=== PATIENT | male | born 1935 | race Caucasian/White ===

== ENCOUNTER 2016-05-05 14:44 | Inpatient (IN) | payer MEDICARE ==
[~2016-05-05] VITALS: Ht 182.9 cm; Wt 73.8 kg
[2016-05-05 14:53] VITALS: BP 170/89; PULSE 74; RESP 18; TEMP 97.6; O2SAT 98
--- NOTE | 2016-05-05 15:09 | PD ---
HPI Chief Complaint: Syncope/Near-Syncope Time Seen by Provider: 14:50 Travel History International Travel<30 days: No Contact w/Intl Traveler<30days: No Traveled to known affect area: No History of Present Illness HPI This patient was feeling lightheaded with some generalized weakness. It started this morning. Duration is 6 hours. It became progressive so he called paramedics. He felt like he was in a pass out but there was no LOC. Paramedics found him at home and a heart rate of 48 and a blood pressure of 80/ 50. They gave him 0.5 mg IV atropine and 500 cc normal saline IV bolus. He arrives with a heart rate of 77 and a blood pressure of 170 systolic. About the time he was arriving at the emergency room he started to have some low sternal chest discomfort. Describes it as an aching pressure. It is mild in severity. No radiation or diaphoresis or nausea. He has significant cardiac history. He had a KS in [place] 03/17/2016 and had a catheterization. According to the patient medical management was the recommendation. He has had bypass grafting. Symptoms severity was moderate. Alleviated with atropine and IV fluid PFSH Past Medical History Hx Anticoagulant Therapy: Yes Cardiovascular Problems: Yes Social History Alcohol Use: No Tobacco Use: No Substance Use: No Allergies-Medications (Allergen,Severity, Reaction): Coded Allergies: Penicillin (Verified Allergy, Unknown, hives, 05/05/16) Reported Meds & Prescriptions Reported Meds & Active Scripts Active Reported Immune Enhance (Nutritional Supplements) 1 Tab Tab 1 Tab PO DAILY Biotin 7,500 Mcg Tab 7,500 Mcg PO DAILY E-400-Clear (Vitamin E) 400 Unit Cap 1 Cap PO DAILY Vitamin D3 (Cholecalciferol) 2,000 Unit Chew 2,000 Units CHEW DAILY Vitamin C (Ascorbic Acid) 500 Mg Cap 500 Mg PO DAILY Vitamin B-6 (Pyridoxine HCl) 100 Mg Tab 100 Mg PO DAILY Vitamin B-12 (Cyanocobalamin) 500 Mcg Lozg 500 Mcg BUCCAL DAILY Vitamin A 10,000 Unit Tab 10,000 Units PO DAILY Zinc (Zinc Gluconate) 50 Mg Tab 1 Tab PO DAILY Nitrostat SL (Nitroglycerin) 0.4 Mg Subl 0.4 Mg SL DIRECTED PRN 1 tablet under the tongue as needed for chest pain. Repeat every 5 minutes for a total of 3 DOSES or call 911 if NO relief. Brimonidine Opth Drops (Brimonidine Tartrate) 0.15% Soln 1 Drop EACH EYE BID Ecotrin Low Strength (Aspirin) 81 Mg Tabdr 81 Mg PO DAILY Prednisone 1 Mg Tab 4 Mg PO DAILY Isosorbide Mononitrate ER (Isosorbide Mononitrate) 120 Mg Abram 120 Mg PO DAILY Lisinopril 20 Mg Tab 20 Mg PO DAILY Rosuvastatin (Rosuvastatin Calcium) 40 Mg Tab 40 Mg PO DAILY Carvedilol 6.25 Mg Tab 6.25 Mg PO BID Brilinta (Ticagrelor) 60 Mg Tab 60 Mg PO BID [renexa] 500 Mg PO BID Review of Systems General / Constitutional: No: Fever Eyes: No: Visual changes HENT: Positive: Lightheadedness, No: Headaches Cardiovascular: Positive: Chest Pain or Discomfort Respiratory: No: Shortness of Breath Gastrointestinal: No: Abdominal Pain Genitourinary: No: Dysuria Musculoskeletal: Positive: Weakness, No: Pain Skin: No Rash Neurologic: Positive: Weakness, Dizziness Psychiatric: No: Depression Endocrine: No: Polydipsia Hematologic/Lymphatic: No: Easy Bruising Physical Exam Narrative GENERAL: Well-nourished, well-developed patient in no apparent distress. SKIN: Warm and dry. HEAD: Atraumatic. Normocephalic. EYES: Pupils equal and round. No scleral icterus. No injection or drainage. ENT: No nasal bleeding or discharge. Mucous membranes pink and moist. NECK: Trachea midline. No JVD. CARDIOVASCULAR: Regular rate and rhythm. No murmur appreciated. RESPIRATORY: No accessory muscle use. Clear to auscultation. Breath sounds equal bilaterally. GASTROINTESTINAL: Abdomen soft, non-tender, nondistended. Hepatic and splenic margins not palpable. MUSCULOSKELETAL: No obvious deformities. No clubbing. No cyanosis. No edema. NEUROLOGICAL: Awake and alert. No obvious cranial nerve deficits. Motor grossly within normal limits. Normal speech. PSYCHIATRIC: Appropriate mood and affect; insight and judgment normal. Data Data Last Documented VS Vital Signs Date Time Temp Pulse Resp B/P Pulse Ox O2 Delivery O2 Flow Rate FiO2 05/05/16 15:09 Nasal Cannula 2 05/05/16 14:53 97.6 74 18 170/89 98 Orders Basic Metabolic Panel (Bmp) (05/05/16 15:01) Complete Blood Count With Diff (05/05/16 15:01) Ckmb (Isoenzyme) Profile (05/05/16 15:01) Troponin I (05/05/16 15:01) Act Partial Throm Time (Ptt) (05/05/16 15:01) Prothrombin Time / Inr (Pt) (05/05/16 15:01) Chest, Single Ap (05/05/16 15:01) Ecg Monitoring (05/05/16 15:01) Iv Access Insert/Monitor (05/05/16 15:01) Oximetry (05/05/16 15:01) Sodium Chloride 0.9% Flush (Ns Flush) (05/05/16 15:15) Aspirin (Aspirin) (05/05/16 15:30) Labs Laboratory Tests Test 05/05/16 14:40 White Blood Count 13.2 TH/MM3 Red Blood Count 4.03 MIL/MM3 Hemoglobin 11.9 GM/DL Hematocrit 36.9 % Mean Corpuscular Volume 91.5 FL Mean Corpuscular Hemoglobin 29.5 PG Mean Corpuscular Hemoglobin 32.2 % Concent Red Cell Distribution Width 13.7 % Platelet Count 197 TH/MM3 Mean Platelet Volume 8.6 FL Neutrophils (%) (Auto) 78.5 % Lymphocytes (%) (Auto) 11.0 % Monocytes (%) (Auto) 7.8 % Eosinophils (%) (Auto) 2.2 % Basophils (%) (Auto) 0.5 % Neutrophils # (Auto) 10.4 TH/MM3 Lymphocytes # (Auto) 1.4 TH/MM3 Monocytes # (Auto) 1.0 TH/MM3 Eosinophils # (Auto) 0.3 TH/MM3 Basophils # (Auto) 0.1 TH/MM3 CBC Comment DIFF FINAL Differential Comment Prothrombin Time 10.9 SEC Prothromb Time International 1.0 RATIO Ratio Activated Partial 21.7 SEC Thromboplast Time Sodium Level 137 MEQ/L Potassium Level 3.7 MEQ/L Chloride Level 102 MEQ/L Carbon Dioxide Level 26.5 MEQ/L Anion Gap 9 MEQ/L Blood Urea Nitrogen 28 MG/DL Creatinine 1.50 MG/DL Estimat Glomerular Filtration 45 ML/MIN Rate Random Glucose 128 MG/DL Calcium Level 7.5 MG/DL Total Creatine Kinase 45 U/L Troponin I 0.17 NG/ML MDM Medical Decision Making Medical Screen Exam Complete: Yes Emergency Medical Condition: Yes Medical Record Reviewed: Yes Differential Diagnosis Differential diagnosis includes KS, angina, pericarditis, pleurisy, GERD, anxiety, medication side effect, vasovagal episode, cardiac arrhythmia Narrative Course I have reviewed the patient's electronic medical record. Patient is never been here before. I reviewed his type handouts detailing medical history and medication list I reviewed the paramedics EKG IV placed I reviewed the EKG which shows sinus rhythm in the 70s. No acute ST elevation. There is some lateral lead depression and leads V1 and aVL and V5 and V6. Appears to be deep Q waves in one of the inferior leads. I reviewed the chest x-ray which is normal Extended cardiac monitoring shows sinus rhythm in the 70s CBC is normal Metabolic profile is normal CK is normal Troponin is 0.17, very minor nonspecific elevation Coagulation studies are normal I gave him an aspirin On recheck patient is pain-free and doing well with heart rate of 65 and blood pressure 170 systolic I reviewed the case in detail with ZACK Cao on behalf of the hospitalist service and he accepts admission He is going to review with cardiology Procedures EKG Prior to Arrival: Yes Diagnosis Primary Impression: Pre-syncope Additional Impression: Chest pain Qualified Code: R07.2 - Precordial pain Admitting Information Admitting Physician Requests: Admit Russell Hernandez MD May 05, 2016 15:09
[2016-05-05 15:15] LABS: AUTOMATED NEUTROPHIL # 10.4 TH/MM3 (1.8-7.7); BASOPHIL # 0.1 TH/MM3 (0-0.2); BASOPHIL % 0.5 % (0.0-2.0); EOSINOPHIL # 0.3 TH/MM3 (0-0.4); EOSINOPHIL % 2.2 % (0.0-4.0); HEMATOCRIT 36.9 % (39.0-51.0); LYMPHOCYTE # 1.4 TH/MM3 (1.0-4.8); MEAN CELL VOLUME 91.5 FL (80.0-100.0); MEAN CORPUSCULAR HEMOGLOBIN 29.5 PG (27.0-34.0); MEAN CORPUSCULAR HGB CONC 32.2 % (32.0-36.0); MONO % 7.8 % (0.0-8.0); NEUT % 78.5 % (16.0-70.0); PLATELET COUNT 197 TH/MM3 (150-450); RED BLOOD COUNT 4.03 MIL/MM3 (4.50-5.90); RED CELL DISTRIBUTION WIDTH 13.7 % (11.6-17.2); WHITE BLOOD COUNT 13.2 TH/MM3 (4.0-11.0)
[2016-05-05] MEDS ORDERED: SODIUM CHLORIDE 0.9% FLUSH 5 ML FLUSH IVF PRN (15:15)
[2016-05-05 15:16] LABS: HEMO FLAGS DIFF FINAL
--- NOTE | 2016-05-05 15:18 | RADHPO ---
EXAM DATE/TIME: 05/05/2016 15:13 [facility] COMPARISON: No previous studies available for comparison. INDICATIONS : Dizziness and faint feeling all day. MEDICAL HISTORY : Chronic obstructive pulmonary disease. SURGICAL HISTORY : CABG. ENCOUNTER: Initial ACUITY: 1 day PAIN SCORE: 2/10 LOCATION: Bilateral chest FINDINGS: A single view of the chest demonstrates the lungs to be symmetrically aerated without evidence of mas s, infiltrate or effusion. The cardiomediastinal contours are unremarkable. There is evidence of pre vious cardiothoracic surgery. Osseous structures are intact. CONCLUSION: No acute disease. Momo Hu MD on May 05, 2016 at 15:17 Board Certified Radiologist. This report was verified electronically.
[2016-05-05] MEDS ORDERED: BRIM0.155 EACH EYE (15:23)
[2016-05-05] MEDS ORDERED: renexa PO (15:23)
[2016-05-05] MEDS ORDERED: LISI-515 PO (15:23)
[2016-05-05] MEDS ORDERED: CHEL50TA PO (15:23)
[2016-05-05] MEDS ORDERED: [UNRECOGNIZED DRUG - CODE] PO (15:23)
[2016-05-05] MEDS ORDERED: PRED1 PO (15:23)
[2016-05-05] MEDS ORDERED: ASPI-147 PO (15:23)
[2016-05-05] MEDS ORDERED: CARV6.252 PO (15:23)
[2016-05-05] MEDS ORDERED: TICA1TAB PO (15:23)
[2016-05-05] MEDS ORDERED: ISOS120T PO (15:23)
[2016-05-05] MEDS ORDERED: NITR0.4S SL (15:23)
[2016-05-05] MEDS ORDERED: ROSU1TAB10 PO (15:23)
[2016-05-05] MEDS ORDERED: [UNRECOGNIZED DRUG - CODE] PO (15:24)
[2016-05-05] MEDS ORDERED: ASCO500C PO (15:24)
[2016-05-05] MEDS ORDERED: PYRI100T PO (15:24)
[2016-05-05] MEDS ORDERED: BIOT7500 PO (15:24)
[2016-05-05] MEDS ORDERED: CHOL1CHW5 CHEW (15:24)
[2016-05-05] MEDS ORDERED: VITA500L BUCCAL (15:24)
[2016-05-05] MEDS ORDERED: [UNRECOGNIZED DRUG - OTHER] PO (15:24)
[2016-05-05] MEDS ORDERED: ASPIRIN 325 MG TAB PO ONE (15:30)
[2016-05-05 15:39] LABS: POTASSIUM 3.7 MEQ/L (3.5-5.1)
[2016-05-05 15:44] LABS: BICARBONATE 26.5 MEQ/L (21.0-32.0)
[2016-05-05 15:46] LABS: APTT (PATIENT) 21.7 SEC (24.3-30.1); PROTHROMBIN TIME - PATIENT 10.9 SEC (9.8-11.6)
[2016-05-05 15:50] VITALS: BP 164/83; PULSE 83; RESP 16; O2SAT 98
[2016-05-05] MEDS ORDERED: NITROGLYCERIN 0.4 MG SL 25 TABS/BTL SL PRN (16:15)
[2016-05-05] MEDS ORDERED: SODIUM CHLORIDE 0.9% FLUSH 5 ML FLUSH FLUSH PRN (16:15)
[2016-05-05] MEDS ORDERED: ONDANSETRON HCL 4 MG/2 ML VIAL IVP PRN (16:15)
[2016-05-05] MEDS ORDERED: TEMAZEPAM 15 MG CAP PO PRN (16:15)
[2016-05-05] MEDS ORDERED: NALOXONE HCL 0.4 MG/ML AMP IV PRN (16:15)
[2016-05-05] MEDS ORDERED: ACETAMINOPHEN 325 MG TAB PO PRN (16:15)
--- NOTE | 2016-05-05 17:40 | HHI.HP ---
[facility] Service [place] Hospitalists Primary Care Physician No Primary Care Physician Admission Diagnosis presyncope, chest pain, CAD Diagnoses: (1) Chest pain Diagnosis: Principal (2) Pre-syncope Diagnosis: Principal (3) Hypotension Diagnosis: Principal (4) Coronary artery disease Diagnosis: Secondary (5) Hyperlipidemia Diagnosis: Secondary Chief Complaint: Lightheaded, dizzy, low blood pressure Travel History International Travel<30 Days: No Contact w/Intl Traveler <30 Da: No Traveled to Known Affected Are: No History of Present Illness 80 year-old male with known history of hypertension, hyperlipidemia, coronary artery disease status post bypass surgery, history myocardial infarction who presented to hospital because of low blood pressure, lightheadedness, dizziness. Patient states that his normal state of health until today. Patient states that he took his medication this morning as usual. He took a shower at approximately 11 AM. When his condition and the shower he felt a little lightheaded, dizzy. He checked his blood pressure and systolic blood pressure was 110., That is low for him. He did have a mild cut on his back; friend who came over to check on him. They put a Band-Aid on his back. They rechecked his blood pressure throughout his friend stayed. In blood pressure went down to systolic blood pressure 80s. At that time, they called the ambulance to came to his residence. It was indicated that his blood pressure was 80/50. Heart rate was 48. Patient was given 0.5 mg IV atropine and 500 cc IV fluid bolus. His blood pressure did improve to systolic blood pressure 170 and heart rate 77. After the patient received the atropine he started developing a achiness in the middle part of his chest without any radiation to his neck, back, shoulder, arm. Denies any nausea, vomiting, diaphoresis, shortness of breath, dyspnea. Patient states by the time he mated to the hospital that was approximately 15 minutes, the chest pain had resolved. Patient had workup done in the emergency department and found to have equivocal troponin elevation. Because of patient's near-syncope, blood pressure issues, elevated troponin, chest pain is recommended by the ER physician that the patient be admitted for further evaluation and management. Patient states that he does not have a local ground defence officer. He states that his ground defence officer is located in [place]. He recently visited his daughter in [place] in which he had an episode of chest pain in March. He did undergo cardiac catheterization at that time. He was told that there is no intervention that could be done at that time. The patient returned to another hospital approximately one week later and after that ground defence officer reviewed the patient's recent cardiac catheterization, he agreed that there was no intervention that can be done. Review of Systems Constitutional: COMPLAINS OF: Dizziness, DENIES: Diaphoretic episodes, Fatigue , Fever, Weight gain, Weight loss, Chills, Change in appetite, Night Sweats Eyes: DENIES: Blurred vision, Diplopia, Eye inflammation, Eye pain, Vision loss , Double Vision Ears, nose, mouth, throat: DENIES: Vertigo, Nasal discharge, Throat pain, Ear Pain, Running Nose Respiratory: DENIES: Apneas, Cough, Snoring, Wheezing, Hemoptysis, Sputum production, Shortness of breath Cardiovascular: COMPLAINS OF: Chest pain, DENIES: Palpitations, Syncope, Dyspnea on Exertion, Lower Extremity Edema, Orthopnea Gastrointestinal: DENIES: Abdominal pain, Black stools, Bloody stools, Constipation, Diarrhea, Nausea, Vomiting, Difficulty Swallowing, Anorexia Neurologic: DENIES: Abnormal gait, Headache, Localized weakness, Paresthesias, Speech Problems, Tremor, Poor Balance Past Family Social History Past Medical History Hypertension Hyperlipidemia Coronary artery disease History myocardial infarction Past Surgical History Cataract surgery Cardiac catheterization Cholecystectomy Coronary bypass surgery 4 vessel Left knee replacement Lumbar spine arthroscopic surgery Reported Medications Reported Meds & Active Scripts Active Reported Biotin 7,500 Mcg Tab 7,500 Mcg PO DAILY E-400-Clear (Vitamin E) 400 Unit Cap 1 Cap PO DAILY Vitamin D3 (Cholecalciferol) 2,000 Unit Chew 2,000 Units CHEW DAILY Vitamin C (Ascorbic Acid) 500 Mg Cap 500 Mg PO DAILY Vitamin B-6 (Pyridoxine HCl) 100 Mg Tab 100 Mg PO DAILY Vitamin B-12 (Cyanocobalamin) 500 Mcg Lozg 500 Mcg BUCCAL DAILY Vitamin A 10,000 Unit Tab 10,000 Units PO DAILY Zinc (Zinc Gluconate) 50 Mg Tab 1 Tab PO DAILY Nitrostat SL (Nitroglycerin) 0.4 Mg Subl 0.4 Mg SL DIRECTED PRN 1 tablet under the tongue as needed for chest pain. Repeat every 5 minutes for a total of 3 DOSES or call 911 if NO relief. Brimonidine Opth Drops (Brimonidine Tartrate) 0.15% Soln 1 Drop EACH EYE BID Ecotrin Low Strength (Aspirin) 81 Mg Tabdr 81 Mg PO DAILY Prednisone 1 Mg Tab 4 Mg PO DAILY Isosorbide Mononitrate ER (Isosorbide Mononitrate) 120 Mg Abram 120 Mg PO DAILY Lisinopril 20 Mg Tab 20 Mg PO DAILY Rosuvastatin (Rosuvastatin Calcium) 40 Mg Tab 40 Mg PO DAILY Carvedilol 6.25 Mg Tab 6.25 Mg PO BID Brilinta (Ticagrelor) 60 Mg Tab 60 Mg PO BID [renexa] 500 Mg PO BID Immune Enhance (Nutritional Supplements) 1 Tab Tab 1 Tab PO DAILY Allergies: Coded Allergies: Penicillin (Verified Allergy, Unknown, hives, 05/05/16) Family History Reviewed and significant for heart disease. Social History Patient denies any tobacco, alcohol or illicit drugs Physical Exam Vital Signs Vital Signs Date Time Temp Pulse Resp B/P Pulse Ox O2 Delivery O2 Flow Rate FiO2 05/05/16 15:50 83 16 164/83 98 Room Air 2 05/05/16 15:09 Nasal Cannula 2 05/05/16 14:53 97.6 74 18 170/89 98 05/05/16 14:44 74 98 Nasal Cannula 4 Physical Exam GENERAL: Well-developed, well-nourished, in no acute distress. alert and orientated HEENT: Head is normocephalic without any lesions or masses noted. Facial features are symmetric. Eyes: Pupils equal round reactive to light. Extraocular muscles are intact. Conjunctivae were clear. Oropharyngeal: Pharynx without any erythema edema. Tongue is midline without deviation. Buccal mucosa is moist without any masses or lesions NECK: Supple without any masses. Trachea midline no deviation. No JVD, no bruits are appreciated CARDIAC: Regular rhythm, regular rate. S1/S2 are heard. No murmurs gallops or rubs. LUNGS: Clear to auscultation bilaterally. No wheeze, rhonchi or rales. No use of accessory muscles on inspiration or expiration. ABDOMEN: Soft, nontender. Nondistended. Bowel sounds heard in all 4 quadrants. No organomegaly or masses. Negative rebound, negative guarding EXTREMITIES: No edema, pulses are equal bilaterally. No cyanosis or clubbing NEUROLOGY: Mood and affect appear appropriate. Cranial nerves II through XII grossly intact. Muscle strength 5/5 in upper and lower extremities bilaterally. Deep tendon reflexes are 2+ in upper and lower extremities bilaterally. Laboratory Laboratory Tests Test 05/05/16 14:40 White Blood Count 13.2 Red Blood Count 4.03 Hemoglobin 11.9 Hematocrit 36.9 Mean Corpuscular Volume 91.5 Mean Corpuscular Hemoglobin 29.5 Mean Corpuscular Hemoglobin 32.2 Concent Red Cell Distribution Width 13.7 Platelet Count 197 Mean Platelet Volume 8.6 Neutrophils (%) (Auto) 78.5 Lymphocytes (%) (Auto) 11.0 Monocytes (%) (Auto) 7.8 Eosinophils (%) (Auto) 2.2 Basophils (%) (Auto) 0.5 Neutrophils # (Auto) 10.4 Lymphocytes # (Auto) 1.4 Monocytes # (Auto) 1.0 Eosinophils # (Auto) 0.3 Basophils # (Auto) 0.1 CBC Comment DIFF FINAL Differential Comment Prothrombin Time 10.9 Prothromb Time International 1.0 Ratio Activated Partial 21.7 Thromboplast Time Sodium Level 137 Potassium Level 3.7 Chloride Level 102 Carbon Dioxide Level 26.5 Anion Gap 9 Blood Urea Nitrogen 28 Creatinine 1.50 Estimat Glomerular Filtration 45 Rate Random Glucose 128 Calcium Level 7.5 Total Creatine Kinase 45 Troponin I 0.17 Result Diagram: 05/05/16 1440 05/05/16 1440 Imaging Last Impressions Chest X-Ray 05/05/16 1501 Signed Impressions: Service Date/Time: Thursday, May 05, 2016 15:13 - CONCLUSION: No acute disease. Momo Hu MD Assessment and Plan Assessment and Plan Chest pain, possible unstable angina with equivocal troponin We will continue to trend cardiac enzymes Continue serial EKGs Patient with cardioprotection to include aspirin, beta amadou, KOLE inhibitor, statin, imdur Consult ground defence officer for further recommendations Lightheadedness,? Presyncope with low blood pressure, bradycardia Patient has had medications adjusted by outpatient ground defence officer recently, Could be related to patient's medication change Continue monitor blood pressure and heart rate Cardiac telemetry Check orthostatic vitals Chest TSH Hypertension, hyperlipidemia, coronary artery disease Continue home medications DVT prevention Sequential compression devices Physician Certification 2 Midnight Certification Type: Admission for Inpatient Services Order for Inpatient Services The services are ordered in accordance with Medicare regulations or non- Medicare payer requirements, as applicable. In the case of services not specified as inpatient-only, they are appropriately provided as inpatient services in accordance with the 2-midnight benchmark. Estimated LOS (days): 2 days is the estimated time the patient will need to remain in the hospital, assuming treatment plan goals are met and no additional complications. Post-Hospital Plan: Not yet determined Problem Qualifiers (1) Chest pain: Qualified Code: R07.2 - Precordial pain (2) Hypotension: Qualified Code: I95.9 - Hypotension, unspecified hypotension type (3) Coronary artery disease: Qualified Code: I25.10 - Coronary artery disease, angina presence unspecified, unspecified vessel or lesion type, unspecified whether [place] or transplanted heart (4) Hyperlipidemia: Qualified Code: E78.5 - Hyperlipidemia, unspecified hyperlipidemia type Russell Cao May 05, 2016 17:40 Merlyn Jackson MD May 05, 2016 17:43
[2016-05-05] MEDS: NS + KCL 20 MEQ INJ 1,000 ML IV SCH (17:46)
[2016-05-05 19:51] VITALS: PULSE 61
[2016-05-05 20:00] VITALS: BP_SYST 168; BP_SYST 175; BP_DIAS 88; BP_DIAS 99; PULSE 61; RESP 18; TEMP 97.3; O2SAT 99
[2016-05-05] MEDS: SODIUM CHLORIDE 0.9% FLUSH 5 ML FLUSH FLUSH SCH (21:00)
[2016-05-05] MEDS ORDERED: CARVEDILOL 6.25 MG TAB PO SCH (21:00)
[2016-05-05] MEDS: TICAGRELOR 60 MG TAB PO SCH (21:27)
[2016-05-05] MEDS: BRIMONIDINE TARTRATE 0.15% OPHT SOLN 5 ML BTL EACH EYE SCH (21:27)
[2016-05-05] MEDS: RANOLAZINE 500 MG EXTENDED RELEASE TAB PO SCH (21:27)
[2016-05-05] MEDS ORDERED: CARVEDILOL 12.5 MG TAB PO ONE (22:00)
[2016-05-05] MEDS: ATORVASTATIN 40 MG TAB PO SCH (22:11)
[2016-05-05] MEDS ORDERED: CARV12.52 PO (22:14)
[2016-05-06] VITALS (9 sets, daily range): BP systolic 118–200; BP diastolic 60–108; PULSE 56–75; RESP 17–20; TEMP 95.7–97.3; O2SAT 96–98
[2016-05-06] MEDS: NS + KCL 20 MEQ INJ 1,000 ML IV SCH (05:01)
[2016-05-06 06:39] LABS: CHLORIDE 106 MEQ/L (98-107); POTASSIUM 4.4 MEQ/L (3.5-5.1); SODIUM (NA) 141 MEQ/L (136-145)
[2016-05-06 06:44] LABS: ANION GAP 8 MEQ/L (5-15); BICARBONATE 27.2 MEQ/L (21.0-32.0); BLOOD UREA NITROGEN 25 MG/DL (7-18)
[2016-05-06 06:47] LABS: ALT (GPT) 22 U/L (12-78); AST (GOT) 15 U/L (15-37); GLOMERULAR FILTRATION RATE 53 ML/MIN (>89)
[2016-05-06 06:49] LABS: TOTAL BILIRUBIN ADULT 0.8 MG/DL (0.2-1.0)
[2016-05-06 06:50] LABS: ALKALINE PHOSPHATASE 52 U/L (45-117)
[2016-05-06] MEDS ORDERED: ISOSORBIDE MONONITRATE 60 MG TAB PO SCH (07:00)
--- NOTE | 2016-05-06 08:32 | MB ---
cc: AMERICO ANTHONY MD DATE OF CONSULTATION 05/06/2016 REASON FOR CONSULTATION Chest pain and elevated troponin. HISTORY OF PRESENT ILLNESS Mr. Main is an 80-year-old man who has a history of CABG approximately 10 years ago and prior vasovagal episodes. He reports his usual net c developer is in [place]. In March he was visiting his daughter over in [place] when he had what he described as a hypertensive crisis and chest pain. This led to cardiac catheterization. He was deemed to have non-revascularizable disease, and was subsequently discharged home. Approximately a week later, he had another episode and ended up at the [facility]. He had a second opinion on his films and again was told medical management. Since that time he was doing well until yesterday when, after coming out of the shower, he began to feel a bit dizzy. He said his initial blood pressure was about 110. He had some nausea and had a glass of water. Recheck on the blood pressure showed a systolic in the 80s and normal heart rate. EMS was apparently called and he received Atropine and IV fluid bolus with subsequent increase in his heart rate to 77 and a blood pressure of 170. The patient reports he has had multiple near-syncopal episodes over the years but has never had any syncope. In fact, he states that he was told that he has vasovagal in the past. He is currently asymptomatic but does note that he has had intermittent episodes of chest pain. PAST MEDICAL/SURGICAL HISTORY 1. Myocardial infarction. 2. CABG. 3. CAD. 4. Hypertension. 5. Hyperlipidemia, 6. Vasovagal episodes. 7. Cataract surgery. 8. Left knee replacement. 9. Spinal arthroscopy. OUTPATIENT MEDICATIONS 1. Vitamins. 2. Nitroglycerin p.r.n. 3. Aspirin. 4. Prednisone. 5. Isosorbide. 6. Lisinopril. 7. Rosuvastatin. 8. Carvedilol. 9. Brilinta. 10. Ranexa. ALLERGIES PENICILLIN. FAMILY HISTORY Positive for CAD. SOCIAL HISTORY The patient does not drink or smoke. REVIEW OF SYSTEMS Except what is mentioned in the HPI, all 12 systems are negative. PHYSICAL EXAMINATION VITAL SIGNS: Currently are 62, 18, 173/87. IN GENERAL: He is a well-appearing elderly man who is in no apparent distress. NECK: Free from JVD. LUNGS: Bilaterally clear to auscultation. CARDIOVASCULAR EXAMINATION: He has a normal S1 and S2. I do not appreciate any murmurs, rubs, or gallops. ABDOMEN: Soft. EXTREMITIES: Free from edema. LAB VALUES Significant for an initial BUN of 28 with creatinine of 1.5 and subsequently 25 and 1.30. His troponins are 0.17/0.18/0.17. IMPRESSIONS Vasovagal episode - The patient does have a history of the same. This particular episode followed a shower and some nausea with subsequent bradycardia and hypotension. This was quickly treated and appears to have actually rebounded. As you know, these vasovagal episodes are treated conservatively with hydration. Thus, at this point I do not feel that any further workup is indicated. Stable angina - The patient has had prior CABG and recent catheterization. He was told medical management by two physicians. At this point we will obviously continue with medical management. His troponins are flat elevation and likely related to his underlying pathologies including the CAD, renal insufficiency and hypertension. Hypertension - I would continue the patient on his same regimen as he presented on as he was doing quite well until this vasovagal episode. Consideration may be given towards p.r.n. clonidine for his outpatient blood pressure spikes at home in order to minimize his hospitalizations and symptoms. I think it reasonable for him to be discharged today and follow up as an outpatient with his net c developer or myself. Sincerely, Americo Anthony M.D. FANNY/MASHA /8:08 AM /8:16 AM
[2016-05-06] MEDS ORDERED: ASPIRIN EC 81 MG TABEC PO SCH (09:00)
[2016-05-06] MEDS ORDERED: LISINOPRIL 20 MG TAB PO SCH (09:00)
[2016-05-06] MEDS ORDERED: ATORVASTATIN 40 MG TAB PO SCH (09:00)
[2016-05-06] MEDS ORDERED: CARVEDILOL 12.5 MG TAB PO SCH (09:00)
[2016-05-06] MEDS: SODIUM CHLORIDE 0.9% FLUSH 5 ML FLUSH FLUSH SCH (09:00)
[2016-05-06] MEDS: ATORVASTATIN 40 MG TAB PO SCH (09:00)
[2016-05-06 09:36] LABS: HDL CHOLESTEROL 52.1 MG/DL (40.0-60.0); LDL CHOLESTEROL 53 MG/DL (0-99)
[2016-05-06] MEDS: RANOLAZINE 500 MG EXTENDED RELEASE TAB PO SCH (10:01)
[2016-05-06] MEDS: BRIMONIDINE TARTRATE 0.15% OPHT SOLN 5 ML BTL EACH EYE SCH (10:33)
[2016-05-06] MEDS: TICAGRELOR 60 MG TAB PO SCH (10:34)
--- NOTE | 2016-05-06 12:49 | HHI.PR ---
Subjective Remarks Ambulated throughout hallway, no syncopal or presycnopal episodes. Objective Vitals Vital Signs Date Time Temp Pulse Resp B/P Pulse Ox O2 Delivery O2 Flow Rate FiO2 05/06/16 12:00 96.9 65 20 118/60 97 05/06/16 08:06 65 118/75 05/06/16 08:03 62 123/73 05/06/16 08:00 97.3 59 20 155/65 96 05/06/16 05:05 62 173/87 05/06/16 05:00 64 200/108 05/06/16 04:50 96.7 75 18 180/84 98 05/06/16 04:00 95.8 60 18 172/80 98 05/06/16 00:00 95.7 56 17 142/75 96 05/05/16 20:00 97.3 61 18 168/88 99 168/88 175/99 05/05/16 19:51 61 05/05/16 15:50 83 16 164/83 98 Room Air 2 05/05/16 15:09 Nasal Cannula 2 05/05/16 14:53 97.6 74 18 170/89 98 05/05/16 14:44 74 98 Nasal Cannula 4 I/O 05/05/16 05/05/16 05/05/16 05/06/16 05/06/16 05/06/16 07:00 15:00 23:00 07:00 15:00 23:00 Intake Total 782 ml 597 ml Output Total 500 ml 325 ml Balance 282 ml 272 ml Intake Oral 480 ml IV Total 302 ml 597 ml Output Urine Total 500 ml 325 ml # Voids 2 # Bowel Movements 0 1 Result Diagram: 05/05/16 1440 05/06/16 0540 Objective Remarks GENERAL: Well-nourished, well-developed elderly CM patient. SKIN: Warm and dry. HEAD: Normocephalic. EYES: No scleral icterus. No injection or drainage. NECK: Supple, trachea midline. No JVD or lymphadenopathy. CARDIOVASCULAR: Regular rate and rhythm without murmurs, gallops, or rubs. RESPIRATORY: Breath sounds equal bilaterally. No accessory muscle use. GASTROINTESTINAL: Abdomen soft, non-tender, nondistended. EXTREMITIES: No cyanosis, or edema. NEUROLOGICAL: Awake, alert, and oriented x 3. Non-focal. Cognitively sharp. A/P Problem List: (1) Chest pain ICD Code: R07.9 Status: Acute (2) Pre-syncope ICD Code: R55 Status: Acute (3) Hypotension ICD Code: I95.9 Status: Acute (4) Coronary artery disease ICD Code: I25.10 Status: Acute (5) Hyperlipidemia ICD Code: E78.5 Status: Acute Assessment and Plan -Vasovagal episode - resolved, ambulating well, no further symptoms. Appreciate cardiology input - cleared for DC home. Patient advised on care with position changes, staying hydrated. 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 Problem Qualifiers (1) Chest pain: Qualified Code: R07.2 - Precordial pain (2) Hypotension: Qualified Code: I95.9 - Hypotension, unspecified hypotension type (3) Coronary artery disease: Qualified Code: I25.10 - Coronary artery disease, angina presence unspecified, unspecified vessel or lesion type, unspecified whether [place] or transplanted heart (4) Hyperlipidemia: Qualified Code: E78.5 - Hyperlipidemia, unspecified hyperlipidemia type Shaina Briggs MD May 06, 2016 12:49
--- NOTE | 2016-05-06 15:42 | EKG ---
Date Performed: 05/05/2016 Time Performed: 14:44:42 PTAGE: 80 years EKG: Sinus rhythm Possible inferior infarct - age undetermined Possible left ventricular hypertrophy Ant/septal and la teral ST-T changes may be due to hypertrophy and/or ischemia Abnormal ECG NO PREVIOUS TRACING DOCTOR: Ca Pelayo Interpretating Date/Time 05/06/2016 15:40:10
== END 2016-05-06 13:11 | disposition home or self-care (01) | DRG 316 ==
LOC: PHED 14:44 → PHEDA 15:59 → PH3B 18:14
PROVIDERS: ADMIT Family Medicine; ATTEND Family Medicine
DX: I95.9 Hypotension, unspecified (principal); Z95.1 Presence of aortocoronary bypass graft; I10 Essential (primary) hypertension; I25.2 Old myocardial infarction; E78.5 Hyperlipidemia, unspecified; I25.10 Atherosclerotic heart disease of native coronary artery without angina pectoris; Z96.652 Presence of left artificial knee joint; N28.9 Disorder of kidney and ureter, unspecified; R07.9 Chest pain, unspecified
CPT/HCPCS: 71010; 80048; 80053; 80061; 82550; 84443; 84484; 85025; 85610; 85730; 93005; J3480

== ENCOUNTER 2016-06-20 14:45 | Inpatient (IN) | payer MEDICARE ==
[2016-06-20] VITALS (11 sets, daily range): BP systolic 70–197; BP diastolic 48–111; PULSE 65–93; RESP 14–20; TEMP 95.7–98.3; O2SAT 95–99
[~2016-06-20] VITALS: Ht 170.2 cm; Wt 72.9 kg
[~2016-06-20 14:45] MED LIST: ASCO500C PO; ASPI-147 PO; BIOT7500 PO; BRIM0.155 EACH EYE; CARV12.52 PO; CHEL50TA PO; CHOL1CHW5 CHEW; ISOS120T PO; LISI-515 PO; NITR0.4S SL; PRED1 PO; PYRI100T PO; ROSU1TAB10 PO; TICA1TAB PO; VITA500L BUCCAL; [UNRECOGNIZED DRUG - CODE] PO; [UNRECOGNIZED DRUG - CODE] PO; [UNRECOGNIZED DRUG - OTHER] PO; renexa PO
[2016-06-20] MEDS ORDERED: CARVEDILOL 12.5 MG TAB PO ONE (15:00)
[2016-06-20] MEDS ORDERED: RANOLAZINE 500 MG EXTENDED RELEASE TAB PO ONE (15:00)
[2016-06-20] MEDS ORDERED: MORPHINE SULFATE 4 MG/ML INJ IV PUSH ONE ×2 (15:00→16:15)
[2016-06-20] MEDS ORDERED: ASPIRIN 81 MG CHEW TAB PO ONE (15:00)
[2016-06-20] MEDS ORDERED: LISINOPRIL 20 MG TAB PO ONE (15:00)
[2016-06-20] MEDS ORDERED: SODIUM CHLORIDE 0.9% FLUSH 5 ML FLUSH IVF PRN (15:00)
--- NOTE | 2016-06-20 15:04 | PD ---
HPI Chief Complaint: chest discomfort Time Seen by Provider: 14:52 Travel History International Travel<30 days: No Contact w/Intl Traveler<30days: No History of Present Illness HPI This is an 81 year has a history of a prior CABG and known coronary artery disease who presents to the emergency department with onset about an hour ago chest pain described as heaviness, nonradiating, constant, moderate severity not improve despite taking 3 nitroglycerin. Patient realizes he forgot to take any of his blood pressure medications this morning and didn't take his ranexa. He says this feels typical of his angina but its not going away which is unusual. He denies any diaphoresis or nausea and denies any shortness of breath. He is followed by a stucco laborer in [place]. He says he had a heart attack in March and he had a cardiac catheterization at which point there was no intervenable disease. He's been told this by 2 cardiologists. PFSH Past Medical History Hx Anticoagulant Therapy: Yes Arthritis: Yes Autoimmune Disease: No Anxiety: Yes Heart Rhythm Problems: Yes Cancer: No Cardiovascular Problems: Yes High Cholesterol: Yes Chest Pain: Yes (this admit) Congestive Heart Failure: No Coronary Artery Disease: Yes Diabetes: No Diminished Hearing: No Endocrine: No GERD: Yes Genitourinary: No Hypertension: Yes Immune Disorder: No Kidney Stones: Yes (years ago) Musculoskeletal: Yes Neurologic: No Psychiatric: No Reproductive: No Respiratory: No Immunizations Current: Yes Myocardial Infarction: Yes Sickle Cell Disease: No Thyroid Disease: No Ulcer: No Past Surgical History Abdominal Surgery: Yes (gallbadder removed) AICD: No Arteriovenous Shunt: No Body Medical Devices: pin in right elbow Cardiac Surgery: Yes (4 bypass about 10 years ago) Cholecystectomy: Yes Coronary Artery Bypass Graft: Yes Ear Surgery: No Endocrine Surgery: No Eye Surgery: Yes (catarat) Genitourinary Surgery: No Gynecologic Surgery: No Insulin Pump: No Joint Replacement: Yes (left knee,) Oral Surgery: No Pacemaker: No Thoracic Surgery: No Social History Alcohol Use: No Tobacco Use: No Substance Use: No Allergies-Medications (Allergen,Severity, Reaction): Coded Allergies: Penicillin (Verified Allergy, Severe, Hives, 06/20/16) Reported Meds & Prescriptions Reported Meds & Active Scripts Active Reported Vitamin B-6 (Pyridoxine HCl) 100 Mg Tab 100 Mg PO DAILY Lasix (Furosemide) 20 Mg Tab 20 Mg PO DIRECTED Carvedilol 12.5 Mg Tab 12.5 Mg PO BID Immune Enhance (Nutritional Supplements) 1 Tab Tab 1 Tab PO DAILY Biotin 7,500 Mcg Tab 7,500 Mcg PO DAILY E-400-Clear (Vitamin E) 400 Unit Cap 1 Cap PO DAILY Vitamin D3 (Cholecalciferol) 2,000 Unit Chew 2,000 Units CHEW DAILY Vitamin C (Ascorbic Acid) 500 Mg Cap 500 Mg PO DAILY Vitamin B-12 (Cyanocobalamin) 500 Mcg Lozg 500 Mcg BUCCAL DAILY Vitamin A 10,000 Unit Tab 10,000 Units PO DAILY Zinc (Zinc Gluconate) 50 Mg Tab 1 Tab PO DAILY Nitrostat SL (Nitroglycerin) 0.4 Mg Subl 0.4 Mg SL DIRECTED PRN 1 tablet under the tongue as needed for chest pain. Repeat every 5 minutes for a total of 3 DOSES or call 911 if NO relief. Brimonidine Opth Drops (Brimonidine Tartrate) 0.15% Soln 1 Drop EACH EYE BID Ecotrin Low Strength (Aspirin) 81 Mg Tabdr 81 Mg PO HS Prednisone 1 Mg Tab 4 Mg PO DAILY Isosorbide Mononitrate ER (Isosorbide Mononitrate) 120 Mg Abram 120 Mg PO DAILY Lisinopril 20 Mg Tab 20 Mg PO DAILY Rosuvastatin (Rosuvastatin Calcium) 40 Mg Tab 40 Mg PO DAILY Brilinta (Ticagrelor) 60 Mg Tab 60 Mg PO BID [renexa] 1,000 Mg PO BID Review of Systems Except as stated in HPI: all other systems reviewed are Neg Physical Exam Narrative GENERAL:Well appearing, no acute distress SKIN: Warm and dry. HEAD: Atraumatic. Normocephalic. EYES: Pupils equal and round. No injection or drainage. ENT: Moist mucous membranes NECK: Trachea midline. CARDIOVASCULAR: Regular rate and rhythm. No murmur appreciated. RESPIRATORY: Clear to auscultation. Breath sounds equal bilaterally. GASTROINTESTINAL: Abdomen soft, non-tender, nondistended. MUSCULOSKELETAL: No obvious deformities. NEUROLOGICAL: Awake and alert. No obvious cranial nerve deficits. Moving all extremities. PSYCHIATRIC: Appropriate mood and affect; insight and judgment normal. Data Data Last Documented VS Vital Signs Date Time Temp Pulse Resp B/P Pulse Ox O2 Delivery O2 Flow Rate FiO2 06/20/16 15:50 87 16 118/64 97 Room Air 06/20/16 15:00 98.3 Orders Electrocardiogram (06/20/16 15:00) Complete Blood Count With Diff (06/20/16 15:00) Comprehensive Metabolic Panel (06/20/16 15:00) Troponin I (06/20/16 15:00) Chest, Single Ap (06/20/16 15:00) Ecg Monitoring (06/20/16 15:00) Bilateral Bp Monitoring (06/20/16 15:00) Iv Access Insert/Monitor (06/20/16 15:00) Oximetry (06/20/16 15:00) Oxygen Administration (06/20/16 15:00) Aspirin Chew (Aspirin Chew) (06/20/16 15:00) Sodium Chloride 0.9% Flush (Ns Flush) (06/20/16 15:00) Ranolazine Sr (Ranexa) (06/20/16 15:00) Carvedilol (Coreg) (06/20/16 15:00) Lisinopril (Prinivil) (06/20/16 15:00) Morphine Inj (Morphine Inj) (06/20/16 15:00) Nitroglycerin-Dextrose Inj (Nitroglyceri (06/20/16 15:15) Labs Laboratory Tests Test 06/20/16 15:00 White Blood Count 10.6 TH/MM3 Red Blood Count 4.22 MIL/MM3 Hemoglobin 12.7 GM/DL Hematocrit 37.7 % Mean Corpuscular Volume 89.3 FL Mean Corpuscular Hemoglobin 30.1 PG Mean Corpuscular Hemoglobin 33.7 % Concent Red Cell Distribution Width 13.6 % Platelet Count 239 TH/MM3 Mean Platelet Volume 8.2 FL Neutrophils (%) (Auto) 63.0 % Lymphocytes (%) (Auto) 24.4 % Monocytes (%) (Auto) 11.7 % Eosinophils (%) (Auto) 0.5 % Basophils (%) (Auto) 0.4 % Neutrophils # (Auto) 6.7 TH/MM3 Lymphocytes # (Auto) 2.6 TH/MM3 Monocytes # (Auto) 1.2 TH/MM3 Eosinophils # (Auto) 0.1 TH/MM3 Basophils # (Auto) 0.0 TH/MM3 CBC Comment DIFF FINAL Differential Comment Sodium Level 131 MEQ/L Potassium Level 4.2 MEQ/L Chloride Level 94 MEQ/L Carbon Dioxide Level 25.9 MEQ/L Anion Gap 11 MEQ/L Blood Urea Nitrogen 23 MG/DL Creatinine 1.70 MG/DL Estimat Glomerular Filtration 39 ML/MIN Rate Random Glucose 120 MG/DL Calcium Level 9.1 MG/DL Total Bilirubin 0.8 MG/DL Aspartate Amino Transf 21 U/L (AST/SGOT) Alanine Aminotransferase 35 U/L (ALT/SGPT) Alkaline Phosphatase 61 U/L Troponin I 0.19 NG/ML Total Protein 6.6 GM/DL Albumin 3.6 GM/DL [facility] Medical Decision Making Medical Screen Exam Complete: Yes Emergency Medical Condition: Yes Interpretation(s) afebrile, hypertensive no leukocytosis mild anemia hyponatremia, creatinine 1.7 troponin .19 EKG: nsr, right bundle branch block, inferior and lateral t wave inversions and st depressions, new from prior ekg Differential Diagnosis hypertensive urgency, hypertensive emergency, nstemi Narrative Course This is an 81-year-old male who presents to the emergency department with a history of coronary artery disease. He has had a catheterization recently and was told he has no intervening of disease and he is being managed medically. He presents today with chest pain. He was placed on a monitor and an IV was established. EKG appears significantly different from a prior EKG with a new conduction delay and ST depressions and T-wave inversions in the inferior and lateral leads. I don't think this reflects a STEMI, however it is concerning. Patient forgot to take his blood pressure medications today and his blood pressure was quite high on arrival in the 190s. He was started on a nitroglycerin drip given his persistent chest discomfort. He had a significant drop in blood pressure. He was given a liter of IV fluid and the nitroglycerin was discontinued. He was given his home blood pressure medications which he was supposed to take this morning. Labs demonstrate a troponin of 0.19 which is similar to the patient's baseline. Given his EKG changes I think it's reasonable to admit the patient for hypertensive emergency. I did talk to Dr. Manuel regarding the patient. He felt like despite EKG changes, there was unlikely much cardiology would do and the patient's symptoms are likely due to him forgetting to take his medications. He thinks it is reasonable to observe the patient here in [place] Diagnosis Primary Impression: Hypertensive emergency Admitting Information Admitting Physician Requests: it Rhina Mendez MD Jun 20, 2016 15:03
[2016-06-20] MEDS ORDERED: NITROGLYCERIN-DEXTROSE INJ 250 ML IV ONE (15:15)
[2016-06-20 15:20] LABS: CHLORIDE 94 MEQ/L (98-107); POTASSIUM 4.2 MEQ/L (3.5-5.1); SODIUM (NA) 131 MEQ/L (136-145)
[2016-06-20 15:24] LABS: ANION GAP 11 MEQ/L (5-15); AUTOMATED NEUTROPHIL # 6.7 TH/MM3 (1.8-7.7); BASOPHIL % 0.4 % (0.0-2.0); BICARBONATE 25.9 MEQ/L (21.0-32.0); BLOOD UREA NITROGEN 23 MG/DL (7-18); EOSINOPHIL # 0.1 TH/MM3 (0-0.4); EOSINOPHIL % 0.5 % (0.0-4.0); HEMATOCRIT 37.7 % (39.0-51.0); HEMO FLAGS DIFF FINAL; LYMPH % 24.4 % (9.0-44.0); LYMPHOCYTE # 2.6 TH/MM3 (1.0-4.8); MEAN CELL VOLUME 89.3 FL (80.0-100.0); MEAN CORPUSCULAR HEMOGLOBIN 30.1 PG (27.0-34.0); MEAN CORPUSCULAR HGB CONC 33.7 % (32.0-36.0); MONO % 11.7 % (0.0-8.0); PLATELET COUNT 239 TH/MM3 (150-450); RED BLOOD COUNT 4.22 MIL/MM3 (4.50-5.90); RED CELL DISTRIBUTION WIDTH 13.6 % (11.6-17.2); WHITE BLOOD COUNT 10.6 TH/MM3 (4.0-11.0)
[2016-06-20 15:27] LABS: ALT (GPT) 35 U/L (12-78); AST (GOT) 21 U/L (15-37); GLOMERULAR FILTRATION RATE 39 ML/MIN (>89)
[2016-06-20 15:29] LABS: TOTAL BILIRUBIN ADULT 0.8 MG/DL (0.2-1.0)
[2016-06-20] MEDS ORDERED: PYRI100T PO (15:29)
[2016-06-20] MEDS ORDERED: FURO1TAB62 PO (15:29)
[2016-06-20 15:30] LABS: ALKALINE PHOSPHATASE 61 U/L (45-117)
--- NOTE | 2016-06-20 15:55 | RADHPO ---
EXAM DATE/TIME: 06/20/2016 15:24 [facility] COMPARISON: CHEST SINGLE AP, May 05, 2016, 15:13. INDICATIONS : Sudden onset of chest pain today MEDICAL HISTORY : Cardiovascular disease. SURGICAL HISTORY : CABG. ENCOUNTER: Initial ACUITY: 1 day PAIN SCORE: 6/10 LOCATION: Bilateral chest FINDINGS: A single view of the chest demonstrates the lungs to be symmetrically aerated without evidence of mas s, infiltrate or effusion. The cardiomediastinal contours are unremarkable. Osseous structures are intact. The patient is status post median sternotomy. There are overlying electrocardiogram leads. CONCLUSION: No acute disease. Ugo Barrett MD on June 20, 2016 at 15:53 Board Certified Radiologist. This report was verified electronically.
--- NOTE | 2016-06-20 17:29 | HHI.HP ---
[facility] Non-Staff Admission Diagnosis hypertensive emergency Diagnoses: (1) Chest pain Diagnosis: Principal (2) Accelerated hypertension Diagnosis: Principal (3) Hyperlipidemia Diagnosis: Secondary (4) Coronary artery disease Diagnosis: Secondary Travel History International Travel<30 Days: No Contact w/Intl Traveler <30 Da: No Traveled to Known Affected Are: No History of Present Illness 81-year-old male with known history of hypertension, hyperlipidemia, coronary artery disease status post bypass surgery, history myocardial infarction who presented to hospital because of chest pain. Patient states that his normal state of health until he was cooking something in the kitchen today when he developed midsternal chest pain. He states that it did not radiate into his neck, back, shoulder, arm. Did not experience any nausea, vomiting, diaphoresis, shortness of breath, dyspnea. The patient indicates that he did not take his normal blood pressure and cardiac medications this morning. Patient took nitroglycerin and the pain went away. After about 5 minutes the pain did return, he took another nitroglycerin and the pain went away. The pain returned again so he took the third nitroglycerin, the pain went away and at that time he came to the hospital for evaluation. Upon presentation the patient had a blood pressure that was elevated at 197/111. The patient was started on a nitroglycerin drip and patient developed lightheaded dizziness and his blood pressure dropped to 70/48. Nitroglycerin drip was stopped. At the time evaluating the patient his blood pressure was 166 /98. Patient has a rather extensive cardiac history with coronary bypass surgery 4 vessels 10 years ago. Multiple cardiac catheterizations most recent one in March of this year in which he was told that he cannot have any intervention because of his coronary artery disease and his heart bypass. His sap crm developer is located in [place]. He has had previous workups done in [place]. Patient has had recent admission here at this hospital on 05/05/16 for similar complaints. At that time patient was evaluated by sap crm developer who indicates that patient has stable angina and need to continue with medical management. Review of Systems Constitutional: DENIES: Diaphoretic episodes, Fatigue, Fever, Weight gain, Weight loss, Chills, Dizziness, Change in appetite, Night Sweats Eyes: DENIES: Blurred vision, Diplopia, Eye inflammation, Eye pain, Vision loss , Double Vision Ears, nose, mouth, throat: DENIES: Vertigo, Nasal discharge, Throat pain, Ear Pain, Running Nose, Sinus Pain Respiratory: DENIES: Apneas, Cough, Snoring, Wheezing, Hemoptysis, Sputum production, Shortness of breath Cardiovascular: COMPLAINS OF: Chest pain, DENIES: Palpitations, Syncope, Dyspnea on Exertion, PND, Lower Extremity Edema, Orthopnea Gastrointestinal: DENIES: Abdominal pain, Black stools, Bloody stools, Constipation, Diarrhea, Nausea, Vomiting, Difficulty Swallowing, Anorexia Neurologic: DENIES: Abnormal gait, Headache, Localized weakness, Paresthesias, Seizures, Speech Problems, Tremor, Poor Balance Past Family Social History Past Medical History Hypertension Hyperlipidemia Coronary artery disease History myocardial infarction Past Surgical History Cataract surgery Cardiac catheterization Cholecystectomy Coronary bypass surgery 4 vessel Left knee replacement Lumbar spine arthroscopic surgery Reported Medications Reported Meds & Active Scripts Active Reported Vitamin B-6 (Pyridoxine HCl) 100 Mg Tab 100 Mg PO DAILY Lasix (Furosemide) 20 Mg Tab 20 Mg PO DIRECTED Carvedilol 12.5 Mg Tab 12.5 Mg PO BID Immune Enhance (Nutritional Supplements) 1 Tab Tab 1 Tab PO DAILY Biotin 7,500 Mcg Tab 7,500 Mcg PO DAILY E-400-Clear (Vitamin E) 400 Unit Cap 1 Cap PO DAILY Vitamin D3 (Cholecalciferol) 2,000 Unit Chew 2,000 Units CHEW DAILY Vitamin C (Ascorbic Acid) 500 Mg Cap 500 Mg PO DAILY Vitamin B-12 (Cyanocobalamin) 500 Mcg Lozg 500 Mcg BUCCAL DAILY Vitamin A 10,000 Unit Tab 10,000 Units PO DAILY Zinc (Zinc Gluconate) 50 Mg Tab 1 Tab PO DAILY Nitrostat SL (Nitroglycerin) 0.4 Mg Subl 0.4 Mg SL DIRECTED PRN 1 tablet under the tongue as needed for chest pain. Repeat every 5 minutes for a total of 3 DOSES or call 911 if NO relief. Brimonidine Opth Drops (Brimonidine Tartrate) 0.15% Soln 1 Drop EACH EYE BID Ecotrin Low Strength (Aspirin) 81 Mg Tabdr 81 Mg PO HS Prednisone 1 Mg Tab 4 Mg PO DAILY Isosorbide Mononitrate ER (Isosorbide Mononitrate) 120 Mg Abram 120 Mg PO DAILY Lisinopril 20 Mg Tab 20 Mg PO DAILY Rosuvastatin (Rosuvastatin Calcium) 40 Mg Tab 40 Mg PO DAILY Brilinta (Ticagrelor) 60 Mg Tab 60 Mg PO BID [renexa] 1,000 Mg PO BID Allergies: Coded Allergies: Penicillin (Verified Allergy, Severe, Hives, 06/20/16) Family History Reviewed and significant for heart disease. Social History Patient denies any tobacco, alcohol or illicit drugs Physical Exam Vital Signs Vital Signs Date Time Temp Pulse Resp B/P Pulse Ox O2 Delivery O2 Flow Rate FiO2 06/20/16 17:10 88 14 144/84 97 Room Air 06/20/16 16:25 89 16 167/92 95 Room Air 06/20/16 16:20 14 06/20/16 15:50 87 16 118/64 97 Room Air 06/20/16 15:40 85 14 113/64 95 Room Air 06/20/16 15:30 87 14 70/48 95 Room Air 06/20/16 15:30 14 06/20/16 15:20 82 16 164/91 96 Room Air 06/20/16 15:20 14 06/20/16 15:00 98.3 93 16 197/111 98 06/20/16 15:00 98 Room Air 06/20/16 15:00 98 Room Air 06/20/16 15:00 93 Physical Exam GENERAL: Well-developed, well-nourished, in no acute distress. alert and orientated HEENT: Head is normocephalic without any lesions or masses noted. Facial features are symmetric. Eyes: Pupils equal round reactive to light. Extraocular muscles are intact. Conjunctivae were clear. Oropharyngeal: Pharynx without any erythema edema. Tongue is midline without deviation. Buccal mucosa is moist without any masses or lesions NECK: Supple without any masses. Trachea midline no deviation. No JVD, no bruits are appreciated CARDIAC: Regular rhythm, regular rate. S1/S2 are heard. No murmurs gallops or rubs. LUNGS: Clear to auscultation bilaterally. No wheeze, rhonchi or rales. No use of accessory muscles on inspiration or expiration. ABDOMEN: Soft, nontender. Nondistended. Bowel sounds heard in all 4 quadrants. No organomegaly or masses. Negative rebound, negative guarding EXTREMITIES: No edema, pulses are equal bilaterally. No cyanosis or clubbing NEUROLOGY: Mood and affect appear appropriate. Cranial nerves II through XII grossly intact. Muscle strength 5/5 in upper and lower extremities bilaterally. Deep tendon reflexes are 2+ in upper and lower extremities bilaterally. Laboratory Laboratory Tests Test 06/20/16 15:00 White Blood Count 10.6 Red Blood Count 4.22 Hemoglobin 12.7 Hematocrit 37.7 Mean Corpuscular Volume 89.3 Mean Corpuscular Hemoglobin 30.1 Mean Corpuscular Hemoglobin 33.7 Concent Red Cell Distribution Width 13.6 Platelet Count 239 Mean Platelet Volume 8.2 Neutrophils (%) (Auto) 63.0 Lymphocytes (%) (Auto) 24.4 Monocytes (%) (Auto) 11.7 Eosinophils (%) (Auto) 0.5 Basophils (%) (Auto) 0.4 Neutrophils # (Auto) 6.7 Lymphocytes # (Auto) 2.6 Monocytes # (Auto) 1.2 Eosinophils # (Auto) 0.1 Basophils # (Auto) 0.0 CBC Comment DIFF FINAL Differential Comment Sodium Level 131 Potassium Level 4.2 Chloride Level 94 Carbon Dioxide Level 25.9 Anion Gap 11 Blood Urea Nitrogen 23 Creatinine 1.70 Estimat Glomerular Filtration 39 Rate Random Glucose 120 Calcium Level 9.1 Total Bilirubin 0.8 Aspartate Amino Transf 21 (AST/SGOT) Alanine Aminotransferase 35 (ALT/SGPT) Alkaline Phosphatase 61 Troponin I 0.19 Total Protein 6.6 Albumin 3.6 Result Diagram: 06/20/16 1500 06/20/16 1500 Imaging Last Impressions Chest X-Ray 06/20/16 1500 Signed Impressions: Service Date/Time: Monday, June 20, 2016 15:24 - CONCLUSION: No acute disease. Ugo Barrett MD Assessment and Plan Assessment and Plan Chest pain, stable angina: Cardiac enzymes were performed which appears still to be equivocal without any changes over the last 3 months. Continue to trend cardiac enzymes, continue to monitor serial EKGs. We'll continue with medical management. Will resume patient's home medications that he did not take this morning. ER physician consulted sap crm developer for further recommendations Accelerated hypertension: Due to not taking his medications this morning. We' ll resume his home medications Hyperlipidemia, coronary artery disease: Continue home medications DVT prevention: Sequential compression devices Written by Russell Cao, acting as scribe for Dr. Varner on 06/20/16 at 17: 40. The documentation accurately reflects the work and decisions performed face-to- face by Dr. Varner on 06/20/16 at 1740. Physician Certification 2 Midnight Certification Type: Admission for Inpatient Services Order for Inpatient Services The services are ordered in accordance with Medicare regulations or non- Medicare payer requirements, as applicable. In the case of services not specified as inpatient-only, they are appropriately provided as inpatient services in accordance with the 2-midnight benchmark. Estimated LOS (days): 2 days is the estimated time the patient will need to remain in the hospital, assuming treatment plan goals are met and no additional complications. Post-Hospital Plan: Not yet determined Problem Qualifiers (1) Chest pain: Qualified Code: R07.2 - Precordial pain (2) Hyperlipidemia: Qualified Code: E78.5 - Hyperlipidemia, unspecified hyperlipidemia type (3) Coronary artery disease: Qualified Code: I25.10 - Coronary artery disease, angina presence unspecified, unspecified vessel or lesion type, unspecified whether [place] or transplanted heart Russell Cao Jun 20, 2016 17:29
[2016-06-20] MEDS ORDERED: ONDANSETRON HCL 4 MG/2 ML VIAL IV PRN (18:45)
[2016-06-20] MEDS ORDERED: ACETAMINOPHEN 500 MG CPLT PO PRN (18:45)
[2016-06-20] MEDS ORDERED: NITROGLYCERIN 0.4 MG SL 25 TABS/BTL SL PRN (18:45)
[2016-06-20] MEDS ORDERED: MAGNESIUM HYDROXIDE SUSP 30 ML CUP PO PRN (18:45)
[2016-06-20] MEDS ORDERED: CALCIUM CARBONATE 500 MG CHEWABLE TAB CHEW PRN (18:45)
[2016-06-20] MEDS ORDERED: ACETAMINOPHEN/HYDROcodone 325 MG/7.5 MG TAB PO PRN (18:45)
[2016-06-20] MEDS ORDERED: SODIUM CHLORIDE 0.9% FLUSH 5 ML FLUSH IV PRN (18:45)
[2016-06-20] MEDS ORDERED: MORPHINE SULFATE 4 MG/ML INJ IV PRN (18:45)
[2016-06-20] MEDS: ISOSORBIDE MONONITRATE 60 MG TAB PO SCH (18:48)
[2016-06-20] MEDS: ATORVASTATIN 40 MG TAB PO SCH (18:49)
[2016-06-20] MEDS ORDERED: ASPIRIN EC 81 MG TABEC PO SCH (21:00)
[2016-06-20] MEDS ORDERED: TEMAZEPAM 15 MG CAP PO PRN (21:00)
[2016-06-20] MEDS: SODIUM CHLORIDE 0.9% FLUSH 5 ML FLUSH IV SCH (21:55)
[2016-06-20] MEDS: CARVEDILOL 12.5 MG TAB PO SCH (21:55)
[2016-06-20] MEDS: RANOLAZINE 500 MG EXTENDED RELEASE TAB PO SCH (21:55)
[2016-06-20] MEDS: BRIMONIDINE TARTRATE 0.15% OPHT SOLN 5 ML BTL EACH EYE SCH (22:03)
[2016-06-20] MEDS: TICAGRELOR 60 MG TAB PO SCH (22:03)
[2016-06-21 00:37] VITALS: BP 100/58; PULSE 65; RESP 18; TEMP 97.7; O2SAT 91
[2016-06-21 04:00] VITALS: BP 125/66; PULSE 60; RESP 20; TEMP 97.6; O2SAT 97
[2016-06-21] MEDS: ISOSORBIDE MONONITRATE 60 MG TAB PO SCH (05:24)
[2016-06-21 06:43] LABS: AUTOMATED NEUTROPHIL # 3.7 TH/MM3 (1.8-7.7); BASOPHIL % 0.6 % (0.0-2.0); EOSINOPHIL # 0.1 TH/MM3 (0-0.4); EOSINOPHIL % 1.1 % (0.0-4.0); HEMO FLAGS DIFF FINAL; LYMPH % 32.2 % (9.0-44.0); LYMPHOCYTE # 2.1 TH/MM3 (1.0-4.8); MEAN CELL VOLUME 91.3 FL (80.0-100.0); MEAN CORPUSCULAR HEMOGLOBIN 29.9 PG (27.0-34.0); MEAN CORPUSCULAR HGB CONC 32.8 % (32.0-36.0); MONO % 12.3 % (0.0-8.0); NEUT % 53.8 % (16.0-70.0); PLATELET COUNT 197 TH/MM3 (150-450); RED BLOOD COUNT 3.72 MIL/MM3 (4.50-5.90); RED CELL DISTRIBUTION WIDTH 13.8 % (11.6-17.2); WHITE BLOOD COUNT 6.7 TH/MM3 (4.0-11.0)
[2016-06-21 07:10] LABS: BICARBONATE 28.6 MEQ/L (21.0-32.0); MAGNESIUM 1.8 MG/DL (1.5-2.5); POTASSIUM 4.5 MEQ/L (3.5-5.1)
[2016-06-21 08:00] VITALS: BP 105/59; PULSE 55; RESP 20; TEMP 96.8; O2SAT 96
--- NOTE | 2016-06-21 08:13 | EKG ---
Date Performed: 06/20/2016 Time Performed: 21:08:06 PTAGE: 81 years EKG: Sinus rhythm . Right bundle branch block Inferior infarct - age undetermined Nonspecific ST-T wave changes Abnorma l ECG No significant change from prior electrocardiogram. PREVIOUS TRACING : 06/20/2016 14.48 DOCTOR: Jarocho Manuel Interpretating Date/Time 06/21/2016 08:12:57
--- NOTE | 2016-06-21 08:20 | EKG ---
Date Performed: 06/20/2016 Time Performed: 14:48:02 PTAGE: 81 years EKG: Sinus rhythm . Rightward axis Right bundle branch block Inferior infarct - age undetermined nonspecific ST-T wave changes Abnormal ECG Compared to prior electrocardiogram,right bundle branch block is present. PREVIOUS TRACING : 05/05/2016 14.44 DOCTOR: Jarocho Manuel Interpretating Date/Time 06/21/2016 08:19:36
[2016-06-21] MEDS: BRIMONIDINE TARTRATE 0.15% OPHT SOLN 5 ML BTL EACH EYE SCH (08:32)
[2016-06-21] MEDS: SODIUM CHLORIDE 0.9% FLUSH 5 ML FLUSH IV SCH (08:33)
[2016-06-21] MEDS: TICAGRELOR 60 MG TAB PO SCH (08:33)
[2016-06-21] MEDS: ATORVASTATIN 40 MG TAB PO SCH (08:35)
[2016-06-21] MEDS: RANOLAZINE 500 MG EXTENDED RELEASE TAB PO SCH (08:35)
[2016-06-21] MEDS: CARVEDILOL 12.5 MG TAB PO SCH (08:35)
[2016-06-21 08:42] LABS: HDL CHOLESTEROL 50.1 MG/DL (40.0-60.0)
--- NOTE | 2016-06-21 08:55 | MB ---
cc: JAROCHO MANUEL M.D., KHALIL MD DATE OF CONSULTATION: 06/21/2016 HISTORY OF PRESENT ILLNESS The patient is an 81-year-old white male I am seeing for non-ST elevation MA. I have reviewed prior records. He was seen by my partner in May, Dr. Collins for a vasovagal episode and hypertension. The patient had quadruple bypass 10 years ago. He has had a lot of angina and apparently had catheterizations recently which have been reviewed by multiple cardiologists, showing that he cannot be revascularized either with surgery or intervention and he is being treated medically. He does get angina a number of times per week which usually goes away with a sublingual nitroglycerin. It is usually exertional but can occur at rest. Yesterday morning the patient forgot his medication. He was feeling well until mid to late afternoon when he developed three episodes of substernal pressure without associated symptoms. These were nitrate responsive and the longest lasted 20 minutes. He has been pain free since then. He has had no congestive heart failure symptoms, syncope or palpitations, CVA or claudication, DVT or pulmonary emboli. PAST MEDICAL HISTORY 1. Hypertension. 2. Hyperlipidemia. 3. Cardiac as above. 4. Cataract surgery. 5. Right hearing loss. 6. Cholecystectomy. 7. Left knee replacement. 8. Lumbar disk surgery. ALLERGIES PENICILLIN. SOCIAL HISTORY He is single and does not smoke and drank in the past. MEDICATION Medication list reviewed. REVIEW OF SYSTEMS Review of systems only remarkable for the above along with the hearing loss and occasional joint issues. He occasionally has slow urination. EKG Shows sinus rhythm with nonspecific ST-T wave changes, inferior infarct pattern and a new right bundle-branch block. TELEMETRY Telemetry has shown sinus rhythm but he has had short, nonsustained ventricular tachycardia. IMAGING STUDIES Chest x-ray showed no active disease postoperatively. LABORATORY DATA Lab work with mild anemia, hematocrit 34.0, potassium 4.5, creatinine 1.5. He does have chronic kidney disease III. Troponins have been elevated at 0.19/0.29/0.57 with low CPK totals maximum 53. PHYSICAL EXAMINATION GENERAL: On exam he is alert and oriented x3. VITAL SIGNS: He was initially hypertensive but blood pressure is well controlled now. HEENT: There are no xanthelasma and oropharyngeal mucosa normal. CHEST: Clear. NECK: JVD normal. CARDIAC: S1-S2 with a short 1/6 systolic ejection murmur at the base and apex. ABDOMEN: Benign. EXTREMITIES: Show no cyanosis, clubbing or edema. PULSES: Carotids without bruits. Radials 2+. Femorals 1+ on the right and 2+ on the left without bruits. Pedal is trace. Of note is the fact that he does have peripheral vascular disease but no symptoms. ASSESSMENT/PLAN Mr. Main had elevated blood pressure and a non-ST elevation MA in the setting of missing medication. He has inoperable disease apparently and cannot be revascularized other than with medical management. At this point in time I would recommend the followin. I have emphasized the need for him to take his medication as needed. 2. No heavy exertion. With his nonsustained ventricular tachycardia I have also recommended he not drive. 3. Low cholesterol/salt diet. 4. Follow up with his physician in [place]. If stable he can be discharged late today or tomorrow morning. I have told him that he can follow up with our group if he decides to change but we will not make any appointments at this point in time. All questions have been answered. Jarocho Manuel MD ASG/TLL /7:59 AM /8:39 AM
[2016-06-21] MEDS ORDERED: LISINOPRIL 20 MG TAB PO SCH (09:00)
--- NOTE | 2016-06-21 11:05 | EKG ---
Date Performed: 06/21/2016 Time Performed: 02:49:24 PTAGE: 81 years EKG: Baseline artifact is present. Right bundle branch block Prolonged QT interval Possible infe rior infarct - age undetermined Possible left ventricular hypertrophy Lateral ST-T changes may be due to hypertrophy and/or ischemia Abnormal ECG probably No significant change from prior electrocardiog armond. PREVIOUS TRACING : 06/20/2016 21.08 DOCTOR: Jarocho Manuel Interpretating Date/Time 06/21/2016 11:03:18
[2016-06-21 12:00] VITALS: BP 117/65; PULSE 53; RESP 18; TEMP 97; O2SAT 99
--- NOTE | 2016-06-21 13:49 | HHI.PR ---
Subjective Remarks Patient seen and examined today with Dr. Varner. Patient is clinically stable at this time. He has not had any recurrent chest pain. He did have episode of lightheadedness this morning. He does indicate that he has had increased urination. Care was discussed with patient and daughter at bedside. They did understand and we answered all their questions. Objective Vitals Vital Signs Date Time Temp Pulse Resp B/P Pulse Ox O2 Delivery O2 Flow Rate FiO2 06/21/16 12:00 97.0 53 18 117/65 99 06/21/16 08:00 96.8 55 20 105/59 96 06/21/16 04:00 97.6 60 20 125/66 97 06/21/16 00:37 97.7 65 18 100/58 91 06/20/16 22:38 65 18 100/58 97 06/20/16 21:07 95.7 80 20 172/94 99 06/20/16 20:13 18 97 06/20/16 19:03 86 18 156/88 98 Room Air 06/20/16 19:03 88 18 98 Room Air 06/20/16 17:55 85 14 137/77 97 Room Air 06/20/16 17:10 88 14 144/84 97 Room Air 06/20/16 16:25 89 16 167/92 95 Room Air 06/20/16 16:20 14 06/20/16 15:50 87 16 118/64 97 Room Air 06/20/16 15:40 85 14 113/64 95 Room Air 06/20/16 15:30 87 14 70/48 95 Room Air 06/20/16 15:30 14 06/20/16 15:20 82 16 164/91 96 Room Air 06/20/16 15:20 14 06/20/16 15:00 98.3 93 16 197/111 98 06/20/16 15:00 98 Room Air 06/20/16 15:00 98 Room Air 06/20/16 15:00 93 I/O 06/20/16 06/20/16 06/20/16 06/21/16 06/21/16 06/21/16 07:00 15:00 23:00 07:00 15:00 23:00 Output Total 600 ml Balance -600 ml Output Urine Total 600 ml # Voids 3 # Bowel Movements 0 Result Diagram: 06/21/16 0607 06/21/16 0607 Objective Remarks GENERAL: Well-developed, well-nourished, in no acute distress. alert and orientated HEENT: Head is normocephalic without any lesions or masses noted. Facial features are symmetric. Eyes: Extraocular muscles are intact. Conjunctivae were clear. NECK: Supple without any masses. Trachea midline no deviation. No JVD, CARDIAC: Regular rhythm, regular rate. S1/S2 are heard. No murmurs gallops or rubs. LUNGS: Clear to auscultation bilaterally. No wheeze, rhonchi or rales. No use of accessory muscles on inspiration or expiration. ABDOMEN: Soft, nontender. Nondistended. Bowel sounds heard in all 4 quadrants. No organomegaly or masses. Negative rebound, negative guarding EXTREMITIES: No edema, pulses are equal bilaterally. No cyanosis or clubbing NEUROLOGY: Mood and affect appear appropriate. Cranial nerves II through XII grossly intact. Moving all extremities, speech is clear Urinary Catheter: No Vascular Central Line Catheter: No A/P Assessment and Plan Chest pain, stable angina: Likely non-ST elevated myocardial infarction. Patient does have still elevated equivocal cardiac enzymes. Patient's home medications have been continued. Discussed with cardiology extensively. He indicates that at this time patient is not a candidate for any intervention. Continue with supportive and medical management. Patient did have a couple episodes of nonsustained V. tach. Is recommended by bonding supervisor that the patient follow-up with his primary bonding supervisor and possible need for AICD placement. Patient does not want to pursue any type of intervention here at this time. He wants to follow-up with his own bonding supervisor. Service Administrator indicated that the patient should not drive with his clinical condition. Accelerated hypertension: Blood pressure stable this time. Patient's home medications have been resumed Hyperlipidemia, coronary artery disease: Continue home medications DVT prevention: Sequential compression devices Written by Russell Cao, acting as scribe for Dr. Varner on 06/21/16 at 1140. The documentation accurately reflects the work and decisions performed face-to- face by Dr. Varner on 06/21/16 at 1140. Discharge Planning Discharge home in stable condition Activity: Patient is to take it easy, patient notified not to drive or do any strenuous activity Diet: Healthy heart diet Medications per medication reconciliation Follow-up with primary medical doctor one week. Patient notified to call his bonding supervisor tomorrow and get a appointment as soon as possible. Russell Cao Jun 21, 2016 13:49 Miguel Angel Varner MD Jun 21, 2016 16:33
--- NOTE | 2016-06-21 13:50 | HHI.DCPOC ---
Discharge Care Plan Diagnosis: (1) Chest pain (2) Accelerated hypertension Goals to Promote Your Health * To prevent worsening of your condition and complications * To maintain your health at the optimal level Directions to Meet Your Goals Take your medications as prescribed Follow your dietary instruction Follow activity as directed Keep your appointments as scheduled Take your immunizations and boosters as scheduled If your symptoms worsen call your PCP, if no PCP go to Urgent Care Center or Emergency Room Smoking is Dangerous to Your Health. Avoid second hand smoke Call the 24-hour hour crisis hotline for domestic abuse at Russell Cao Jun 21, 2016 13:50
== END 2016-06-21 15:13 | disposition home or self-care (01) | DRG 281 ==
LOC: PHED 14:45 → PHEDA 16:09 → PH3B 20:11
PROVIDERS: ADMIT Hospitalist; ATTEND Hospitalist
DX: I21.4 Non-ST elevation (NSTEMI) myocardial infarction (principal); I16.1 Hypertensive emergency; I47.2 Ventricular tachycardia; Z95.1 Presence of aortocoronary bypass graft; I12.9 Hypertensive chronic kidney disease with stage 1 through stage 4 chronic kidney disease, or unspecified chronic kidney disease; N18.3 Chronic kidney disease, stage 3 (moderate); I73.9 Peripheral vascular disease, unspecified; I25.118 Atherosclerotic heart disease of native coronary artery with other forms of angina pectoris; I25.2 Old myocardial infarction; E78.5 Hyperlipidemia, unspecified; Z79.52 Long term (current) use of systemic steroids; H91.91 Unspecified hearing loss, right ear; Z96.652 Presence of left artificial knee joint
CPT/HCPCS: 71010; 80048; 80053; 80061; 82550; 83735; 84484; 85025; 93005; 96374; 96375; J2270

== ENCOUNTER 2017-04-04 12:47 | Observation (INO) | payer MEDICARE ==
[2017-04-04] VITALS (9 sets, daily range): BP systolic 108–157; BP diastolic 62–90; PULSE 63–75; RESP 16–20; TEMP 96.6–97.8; O2SAT 97–99
[~2017-04-04] VITALS: Ht 167.6 cm; Wt 72.2 kg
[~2017-04-04 12:47] MED LIST changes: +FURO1TAB62 PO
[2017-04-04] MEDS ORDERED: VITA-176 PO (13:26)
[2017-04-04] MEDS ORDERED: CLON0.1T PO (13:26)
[2017-04-04] MEDS ORDERED: ASPI81TA23 PO (13:26)
--- NOTE | 2017-04-04 13:47 | PD ---
HPI Chief Complaint: Respiratory Symptoms Time Seen by Provider: 13:16 Travel History International Travel<30 days: No Contact w/Intl Traveler<30days: No Traveled to known affect area: No History of Present Illness HPI patient states c/o cough so frequently he gets short of breath, states that he has a in home caregiver in [place], no local doc around...was told that has chf/ with terminal heart disease and was told he is a "walking time bomb" daughter brings him in concerned that she doesn't want pneumonia to occur and that is the reason that she has brought him in. also patient is out of his nitro tabs. PFSH Past Medical History Hx Anticoagulant Therapy: Yes Arthritis: Yes Autoimmune Disease: No Anxiety: Yes Heart Rhythm Problems: Yes Cancer: No Cardiac Catheterization: Yes Cardiovascular Problems: Yes High Cholesterol: Yes Chest Pain: Yes Congestive Heart Failure: No Coronary Artery Disease: Yes Diabetes: No Diminished Hearing: No Endocrine: No GERD: Yes Genitourinary: Yes Hiatal Hernia: No Heparin Induced Thrombocytopen: No Hypertension: Yes Immune Disorder: No Kidney Stones: Yes (years ago) Musculoskeletal: Yes Neurologic: No Psychiatric: No Reproductive: No Respiratory: No Immunizations Current: Yes Myocardial Infarction: Yes Renal Failure: No Seizures: No Sickle Cell Disease: No Thyroid Disease: No Ulcer: No Tetanus Vaccination: Unknown Influenza Vaccination: Yes Past Surgical History Abdominal Surgery: Yes (gallbadder removed) AICD: No Arteriovenous Shunt: No Body Medical Devices: pin in right elbow Cardiac Surgery: Yes (4 bypass about 10 years ago) Cholecystectomy: Yes Coronary Artery Bypass Graft: Yes Ear Surgery: No Endocrine Surgery: No Eye Surgery: Yes (catarat) Genitourinary Surgery: No Gynecologic Surgery: No Insulin Pump: No Joint Replacement: Yes (Lt. knee) Oral Surgery: No Pacemaker: No Thoracic Surgery: No Other Surgery: Yes Social History Alcohol Use: No Tobacco Use: No Substance Use: No Allergies-Medications (Allergen,Severity, Reaction): Coded Allergies: penicillin G (Unverified Allergy, Severe, Hives, 04/04/17) Reported Meds & Prescriptions Reported Meds & Active Scripts Active Reported Vitamin A (Vitamin A Acetate) 10,000 Unit Tab.subl 1 Tab PO DAILY Clonidine (Clonidine HCl) 0.1 Mg Tab 0.1 Mg PO DIRECTED Aspirin EC (Aspirin) 81 Mg Tabdr 81 Mg PO DAILY Vitamin B-6 (Pyridoxine HCl) 100 Mg Tab 100 Mg PO DAILY Lasix (Furosemide) 20 Mg Tab 20 Mg PO DIRECTED Carvedilol 12.5 Mg Tab 25 Mg PO BID Zinc (Zinc Gluconate) 50 Mg Tab 1 Tab PO DAILY Nitrostat SL (Nitroglycerin) 0.4 Mg Subl 0.4 Mg SL DIRECTED PRN 1 tablet under the tongue as needed for chest pain. Repeat every 5 minutes for a total of 3 DOSES or call 911 if NO relief. Brimonidine Opth Drops (Brimonidine Tartrate) 0.15% Soln 1 Drop EACH EYE BID Prednisone 1 Mg Tab 4 Mg PO DAILY Lisinopril 20 Mg Tab 20 Mg PO DAILY Rosuvastatin (Rosuvastatin Calcium) 40 Mg Tab 40 Mg PO DAILY Brilinta (Ticagrelor) 60 Mg Tab 60 Mg PO BID [renexa] 1,000 Mg PO BID Review of Systems Except as stated in HPI: all other systems reviewed are Neg General / Constitutional: No: Fever Eyes: No: Visual changes HENT: No: Headaches Cardiovascular: No: Chest Pain or Discomfort Respiratory: Positive: Cough, Shortness of Breath Gastrointestinal: No: Abdominal Pain Genitourinary: No: Dysuria Musculoskeletal: No: Pain Skin: No Rash Neurologic: No: Weakness Psychiatric: No: Depression Endocrine: No: Polydipsia Hematologic/Lymphatic: No: Easy Bruising Physical Exam Narrative GENERAL: SKIN: Warm and dry. HEAD: Atraumatic. Normocephalic. EYES: Pupils equal and round. No scleral icterus. No injection or drainage. ENT: No nasal bleeding or discharge. Mucous membranes pink and moist. NECK: Trachea midline. No JVD. CARDIOVASCULAR: Regular rate and rhythm. RESPIRATORY: No accessory muscle use. Clear to auscultation. Breath sounds equal bilaterally. GASTROINTESTINAL: Abdomen soft, non-tender, nondistended. MUSCULOSKELETAL: Extremities without clubbing, cyanosis, or 1+ pitting edema to BLE. No obvious deformities. NEUROLOGICAL: Awake and alert. No obvious cranial nerve deficits. Motor grossly within normal limits. Five out of 5 muscle strength in the arms and legs. Normal speech. PSYCHIATRIC: Appropriate mood and affect; insight and judgment normal. Data Data Last Documented VS Vital Signs Date Time Temp Pulse Resp B/P (MAP) Pulse Ox O2 Delivery O2 Flow Rate FiO2 04/04/17 15:17 70 20 137/76 (96) 97 Room Air 04/04/17 13:00 97.8 Orders Orders Electrocardiogram (04/04/17 13:33) Complete Blood Count With Diff (04/04/17 13:33) Comprehensive Metabolic Panel (04/04/17 13:33) Troponin I (04/04/17 13:33) Prothrombin Time / Inr (Pt) (04/04/17 13:33) Act Partial Throm Time (Ptt) (04/04/17 13:33) Lipase (04/04/17 13:33) Influenzae A/B Antigen (04/04/17 13:33) Ct Pulmonary Angiogram (04/04/17 13:33) Iohexol 350 Inj (Omnipaque 350 Inj) (04/04/17 14:48) Nitroglycerin 2% Oint (Nitroglycerin 2% (04/04/17 15:30) Furosemide Inj (Lasix Inj) (04/04/17 15:30) Admit Order (Ed Use Only) (04/04/17 15:54) Labs Laboratory Tests Test 04/04/17 13:45 White Blood Count 8.3 TH/MM3 Red Blood Count 3.74 MIL/MM3 Hemoglobin 11.4 GM/DL Hematocrit 35.2 % Mean Corpuscular Volume 94.2 FL Mean Corpuscular Hemoglobin 30.5 PG Mean Corpuscular Hemoglobin Concent 32.3 % Red Cell Distribution Width 13.1 % Platelet Count 200 TH/MM3 Mean Platelet Volume 7.7 FL Neutrophils (%) (Auto) 61.4 % Lymphocytes (%) (Auto) 25.5 % Monocytes (%) (Auto) 12.1 % Eosinophils (%) (Auto) 0.8 % Basophils (%) (Auto) 0.2 % Neutrophils # (Auto) 5.1 TH/MM3 Lymphocytes # (Auto) 2.1 TH/MM3 Monocytes # (Auto) 1.0 TH/MM3 Eosinophils # (Auto) 0.1 TH/MM3 Basophils # (Auto) 0.0 TH/MM3 CBC Comment DIFF FINAL Differential Comment Prothrombin Time 10.4 SEC Prothromb Time International Ratio 1.0 RATIO Activated Partial Thromboplast Time 23.7 SEC Blood Urea Nitrogen 24 MG/DL Creatinine 1.50 MG/DL Random Glucose 98 MG/DL Total Protein 5.7 GM/DL Albumin 2.6 GM/DL Calcium Level 8.1 MG/DL Alkaline Phosphatase 51 U/L Aspartate Amino Transf (AST/SGOT) 22 U/L Alanine Aminotransferase (ALT/SGPT) 24 U/L Total Bilirubin 0.6 MG/DL Sodium Level 131 MEQ/L Potassium Level 4.1 MEQ/L Chloride Level 97 MEQ/L Carbon Dioxide Level 24.8 MEQ/L Anion Gap 9 MEQ/L Estimat Glomerular Filtration Rate 45 ML/MIN Troponin I 0.07 NG/ML Lipase 441 U/L [facility] Medical Decision Making Medical Screen Exam Complete: Yes Emergency Medical Condition: Yes Medical Record Reviewed: Yes Interpretation(s) nsr 73, first degree av block, inverted t waves III/AVF/v1-v6 Differential Diagnosis flu v pna v pe v pulm edema v stemi Narrative Course FLU TEST NEG, ELEV TROPONIN, DECREASED GFR, AND CT CHEST NEG FOR PE BUT POSITIVE FOR CHF/PULM EDEMA...LIKELY CAUSING STRESS REACTION TO HEART CAUSING HEART STRAIN/CARDIOMYOPATHY. D/W FAMILY AND ADVISED DIURESIS AND SERIAL TROPONIN WHICH SHOULD IMPROVE....FAMILY AND PATIENT AGREE WITH PLAN Diagnosis Primary Impression: Non-STEMI (non-ST elevated myocardial infarction) Additional Impressions: Pulmonary edema Qualified Codes: J81.0 - Acute pulmonary edema CKD (chronic kidney disease) Qualified Codes: N18.9 - Chronic kidney disease, unspecified Admitting Information Admitting Physician Requests: Observation Gamal Huddleston MD Apr 04, 2017 13:47
[2017-04-04 14:00] LABS: AUTOMATED NEUTROPHIL # 5.1 TH/MM3 (1.8-7.7); BASOPHIL % 0.2 % (0.0-2.0); EOSINOPHIL # 0.1 TH/MM3 (0-0.4); EOSINOPHIL % 0.8 % (0.0-4.0); HEMATOCRIT 35.2 % (39.0-51.0); HEMOGLOBIN 11.4 GM/DL (13.0-17.0); LYMPH % 25.5 % (9.0-44.0); LYMPHOCYTE # 2.1 TH/MM3 (1.0-4.8); MEAN CELL VOLUME 94.2 FL (80.0-100.0); MEAN CORPUSCULAR HEMOGLOBIN 30.5 PG (27.0-34.0); MEAN CORPUSCULAR HGB CONC 32.3 % (32.0-36.0); MEAN PLATELET VOLUME 7.7 FL (7.0-11.0); MONO % 12.1 % (0.0-8.0); NEUT % 61.4 % (16.0-70.0); PLATELET COUNT 200 TH/MM3 (150-450); RED BLOOD COUNT 3.74 MIL/MM3 (4.50-5.90); RED CELL DISTRIBUTION WIDTH 13.1 % (11.6-17.2); WHITE BLOOD COUNT 8.3 TH/MM3 (4.0-11.0)
[2017-04-04 14:07] LABS: CHLORIDE 97 MEQ/L (98-107); SODIUM (NA) 131 MEQ/L (136-145)
[2017-04-04 14:10] LABS: CALCIUM 8.1 MG/DL (8.5-10.1)
[2017-04-04 14:11] LABS: ALBUMIN 2.6 GM/DL (3.4-5.0); BICARBONATE 24.8 MEQ/L (21.0-32.0); BLOOD UREA NITROGEN 24 MG/DL (7-18); GLUCOSE,RANDOM 98 MG/DL (74-106); LIPASE 441 U/L (73-393); PROTHROMBIN TIME - PATIENT 10.4 SEC (9.8-11.6)
[2017-04-04 14:14] LABS: ALT (GPT) 24 U/L (12-78); AST (GOT) 22 U/L (15-37); GLOMERULAR FILTRATION RATE 45 ML/MIN (>89)
[2017-04-04 14:15] LABS: TOTAL BILIRUBIN ADULT 0.6 MG/DL (0.2-1.0); TOTAL PROTEIN 5.7 GM/DL (6.4-8.2)
[2017-04-04 14:16] LABS: ALKALINE PHOSPHATASE 51 U/L (45-117)
[2017-04-04 14:19] LABS: TROPONIN I 0.07 NG/ML (0.02-0.05)
[2017-04-04] MEDS ORDERED: IOHEXOL 350 MG/ML 10 ML VIAL (for RAD DIAG) IVCONTRAST ONE (14:48)
--- NOTE | 2017-04-04 14:54 | RADRPT ---
EXAM DATE/TIME: 04/04/2017 14:35 [facility] COMPARISON: CHEST SINGLE AP, June 20, 2016, 15:24. INDICATIONS : Cough and chest pain. Evaluate for embolism. IV CONTRAST: 65 cc Omnipaque 350 (iohexol) IV RADIATION DOSE: 15.52 CTDIvol (mGy) MEDICAL HISTORY : Cardiovascular disease. Hypertension. Anticoagulant therapy. SURGICAL HISTORY : CABG ENCOUNTER: Initial ACUITY: 1 day PAIN SCALE: 4/10 LOCATION: chest TECHNIQUE: Volumetric scanning of the chest was performed using a pulmonary embolism protocol MIP images were re constructed. Using automated exposure control and adjustment of the mA and/or kV according to patien t size, radiation dose was kept as low as reasonably achievable to obtain optimal diagnostic quality images. DICOM format image data is available electronically for review and comparison. Follow-up recommendations for detected pulmonary nodules are based at a minimum on nodule size and pa tient risk factors according to Fleischner Society Guidelines. FINDINGS: PULMONARY ARTERIES: No filling defects are seen in the pulmonary arteries through the segmental level. LUNGS: There is interstitial disease at the periphery of the lungs. There tiny calcified granulomas at the l hilario bases. PLEURAE: There is no pleural thickening or pleural effusion. MEDIASTINUM: There is good visualization of the great vessels of the middle mediastinum. No evidence of mediastin al or hilar adenopathy/mass. The patient is status post sternotomy. Coronary artery calcifications ar e present in the [place] coronary arteries. MUSCULOSKELETAL: Within normal limits for patient age. MISCELLANEOUS: The visualized upper abdominal organs demonstrate no acute abnormality. CONCLUSION: 1. No pulmonary embolus. 2. Interstitial disease at the periphery of the lungs. In the acute setting, this could represent sade e edema. Interstitial disease could also be chronic. Nathanael Ryan MD on April 04, 2017 at 14:49 Board Certified Radiologist. This report was verified electronically.
[2017-04-04] MEDS ORDERED: NITROGLYCERIN 2% OINT 1 GM PACKET TOPICAL ONE (15:30)
[2017-04-04] MEDS ORDERED: FUROSEMIDE 40 MG/4 ML VIAL IV PUSH ONE (15:30)
[2017-04-04] MEDS ORDERED: NITROGLYCERIN 0.4 MG SL 25 TABS/BTL SL PRN (16:30)
[2017-04-04] MEDS ORDERED: SENNOSIDES 8.6 MG TAB PO PRN (16:45)
[2017-04-04] MEDS ORDERED: TEMAZEPAM 15 MG CAP PO PRN (16:45)
[2017-04-04] MEDS ORDERED: BISACODYL 10 MG SUPP RECTAL PRN (16:45)
[2017-04-04] MEDS ORDERED: MAGNESIUM HYDROXIDE SUSP 30 ML CUP PO PRN (16:45)
[2017-04-04] MEDS ORDERED: SODIUM CHLORIDE 0.9% FLUSH 10 ML FLUSH IV FLUSH PRN (16:45)
[2017-04-04] MEDS ORDERED: ACETAMINOPHEN 325 MG TAB PO PRN (16:45)
[2017-04-04] MEDS ORDERED: NALOXONE HCL 0.4 MG/ML AMP IV PUSH PRN (16:45)
[2017-04-04] MEDS ORDERED: ONDANSETRON HCL 4 MG/2 ML VIAL IVP PRN (16:45)
[2017-04-04] MEDS ORDERED: LACTULOSE SYRUP 20 GM/30 ML CUP PO PRN (16:45)
[2017-04-04] MEDS ORDERED: MORPHINE SULFATE 2 MG/ML INJ IV PUSH PRN (17:15)
[2017-04-04] MEDS: FUROSEMIDE 40 MG/4 ML VIAL IV PUSH SCH (18:45)
[2017-04-04] MEDS: HEPARIN SODIUM - SQ 10,000 UNITS/ML VIAL SQ SCH (18:46)
[2017-04-04] MEDS: CARVEDILOL 12.5 MG TAB PO SCH (20:38)
[2017-04-04] MEDS: DOCUSATE SODIUM 50 MG/SENNA 8.6 MG TAB PO SCH (20:39)
[2017-04-04] MEDS: RANOLAZINE 500 MG EXTENDED RELEASE TAB PO SCH (20:39)
[2017-04-04] MEDS: SODIUM CHLORIDE 0.9% FLUSH 10 ML FLUSH IV FLUSH SCH (20:39)
[2017-04-04] MEDS: TICAGRELOR 60 MG TAB PO SCH (20:45)
[2017-04-04] MEDS: BRIMONIDINE TARTRATE 0.15% OPHT SOLN 5 ML BTL EACH EYE SCH (20:45)
--- NOTE | 2017-04-04 21:45 | EKG ---
Date Performed: 04/04/2017 Time Performed: 19:14:07 PTAGE: 81 years EKG: Sinus rhythm WITH FIRST DEGREE AV BLOCK INTRAVENTRICULAR CONDUCTION DELAY LEFT VENTRICULAR HYPERTROPHY AND ST-T C HANGE INFERIOR MYOCARDIAL INFARCTION ABNORMAL ECG Compared to prior electrocardiogram, Right bundle b ranch block no longer present. PREVIOUS TRACING : 04/04/2017 16.52 DOCTOR: Jarocho Manuel Interpretating Date/Time 04/04/2017 21:43:30
--- NOTE | 2017-04-04 21:59 | EKG ---
Date Performed: 04/04/2017 Time Performed: 16:52:55 PTAGE: 81 years EKG: Sinus rhythm WITH FIRST DEGREE AV BLOCK Right bundle branch block possible INFERIOR MYOCARDIAL INFARCTION ABNORMA L ECG No significant change from prior electrocardiogram. PREVIOUS TRACING : 04/04/2017 13.39 DOCTOR: Jarocho Manuel Interpretating Date/Time 04/04/2017 21:58:17
--- NOTE | 2017-04-04 22:09 | EKG ---
Date Performed: 04/04/2017 Time Performed: 13:39:22 PTAGE: 81 years EKG: Sinus rhythm WITH FIRST DEGREE AV BLOCK Right bundle branch block INFERIOR MYOCARDIAL INFARCTION ABNORMAL ECG Com pared to prior electrocardiogram, Premature ventricular contractions no longer present. PREVIOUS TRACING : 06/21/2016 02.49 DOCTOR: Jarocho Manuel Interpretating Date/Time 04/04/2017 22:09:05
[2017-04-05] VITALS (8 sets, daily range): BP systolic 85–151; BP diastolic 50–74; PULSE 54–78; RESP 15–20; TEMP 96.3–98; O2SAT 94–98
[2017-04-05] MEDS: HEPARIN SODIUM - SQ 10,000 UNITS/ML VIAL SQ SCH ×2 (05:09→17:19)
[2017-04-05 06:50] LABS: AUTOMATED NEUTROPHIL # 4.2 TH/MM3 (1.8-7.7); BASOPHIL % 0.2 % (0.0-2.0); EOSINOPHIL # 0.1 TH/MM3 (0-0.4); EOSINOPHIL % 0.7 % (0.0-4.0); HEMATOCRIT 35.1 % (39.0-51.0); HEMOGLOBIN 11.5 GM/DL (13.0-17.0); LYMPH % 29.7 % (9.0-44.0); LYMPHOCYTE # 2.1 TH/MM3 (1.0-4.8); MEAN CELL VOLUME 94.9 FL (80.0-100.0); MEAN CORPUSCULAR HEMOGLOBIN 31.2 PG (27.0-34.0); MEAN CORPUSCULAR HGB CONC 32.9 % (32.0-36.0); MEAN PLATELET VOLUME 7.9 FL (7.0-11.0); MONO % 11.7 % (0.0-8.0); MONOCYTE # 0.8 TH/MM3 (0-0.9); NEUT % 57.7 % (16.0-70.0); PLATELET COUNT 204 TH/MM3 (150-450); RED CELL DISTRIBUTION WIDTH 13.1 % (11.6-17.2); WHITE BLOOD COUNT 7.2 TH/MM3 (4.0-11.0)
[2017-04-05 07:04] LABS: CALCIUM 8.3 MG/DL (8.5-10.1)
[2017-04-05 07:05] LABS: BICARBONATE 26.3 MEQ/L (21.0-32.0)
[2017-04-05 07:08] LABS: CREATININE 1.6 MG/DL (0.60-1.30)
[2017-04-05] MEDS: FUROSEMIDE 40 MG/4 ML VIAL IV PUSH SCH (08:21)
[2017-04-05] MEDS: SODIUM CHLORIDE 0.9% FLUSH 10 ML FLUSH IV FLUSH SCH ×2 (08:24→21:27)
[2017-04-05] MEDS: PYRIDOXINE HCL 50 MG TAB PO SCH (08:28)
[2017-04-05] MEDS: ATORVASTATIN 40 MG TAB PO SCH (08:29)
[2017-04-05] MEDS: DOCUSATE SODIUM 50 MG/SENNA 8.6 MG TAB PO SCH ×2 (08:30→21:26)
[2017-04-05] MEDS: CARVEDILOL 12.5 MG TAB PO SCH ×2 (08:31→21:26)
[2017-04-05] MEDS: TICAGRELOR 60 MG TAB PO SCH ×2 (08:31→21:26)
[2017-04-05] MEDS: RANOLAZINE 500 MG EXTENDED RELEASE TAB PO SCH ×2 (08:32→21:26)
[2017-04-05] MEDS: LISINOPRIL 20 MG TAB PO SCH (08:33)
[2017-04-05] MEDS: ASPIRIN EC 81 MG TABEC PO SCH (08:33)
[2017-04-05] MEDS: BRIMONIDINE TARTRATE 0.15% OPHT SOLN 5 ML BTL EACH EYE SCH ×2 (08:38→21:26)
[2017-04-05] MEDS ORDERED: predniSONE 1 MG TAB PO SCH (09:00)
[2017-04-05] MEDS ORDERED: VITAMIN A 10000 UNIT PO SCH (09:00)
[2017-04-05] MEDS ORDERED: NON-FORMULARY DRUG (Zinc Gluconate (Zinc) 1 TAB) PO SCH (09:00)
[2017-04-05] MEDS ORDERED: RESP: ALBUTEROL 2.5 MG/IPRATROPIUM 0.5 MG NEB (PRN) NEB (12:30)
--- NOTE | 2017-04-05 12:43 | HHI.HP ---
[facility] [place] [facility] Primary Care Physician Non-Staff Admission Diagnosis CHF WITH ELEV TROPONIN (CARDIOMYOPATHY) Diagnoses: Chief Complaint: Cold symptoms for 2 weeks Travel History International Travel<30 Days: No Contact w/Intl Traveler <30 Da: No Traveled to Known Affected Are: No History of Present Illness Patient is an 81-year-old gentleman with known history coronary artery disease. Patient had 2 weeks of increased congestion in the chest, cough and phlegm production. He went to outpatient urgent care center and received doxycycline, steroids as well as a hand-held nebulizer. Patient still had symptoms into the emergency room with increased work of breathing. He was given treatments for congestive heart failure including IV Lasix. He has since diuresed 3.6 L. He has known systolic heart failure and has been in cardiac follow-up with his doctors in both [facility] and in [facility]. They have told him if his heart ejection fracture reaches less than 30% he may be candidate for defibrillator. So far however they have recommended continued medical management which she has been adherent to. He notes some increased edema in the lower extremities and increased work of breathing which has since improved since the IV diuresis with Lasix. He denies any fevers or chills but says he's had some night sweats. Overall he feels improved On my review of x-ray patient does have some pulmonary congestion Review of Systems Constitutional: COMPLAINS OF: Night Sweats, DENIES: Diaphoretic episodes, Fatigue, Fever, Weight gain, Weight loss, Chills, Dizziness, Change in appetite Endocrine: DENIES: Heat/cold intolerance, Polydipsia, Polyuria, Polyphagia Eyes: DENIES: Blurred vision, Diplopia, Eye inflammation, Eye pain, Vision loss , Photosensitivity, Double Vision Ears, nose, mouth, throat: DENIES: Tinnitus, Hearing loss, Vertigo, Nasal discharge, Oral lesions, Throat pain, Hoarseness, Ear Pain, Running Nose, Epistaxis, Sinus Pain, Toothache, Odynophagia Respiratory: COMPLAINS OF: Cough, Sputum production, Shortness of breath, DENIES: Apneas, Snoring, Wheezing, Hemoptysis Cardiovascular: COMPLAINS OF: Dyspnea on Exertion, DENIES: Chest pain, Palpitations, Syncope, PND, Lower Extremity Edema, Orthopnea, Claudication Genitourinary: DENIES: Sexual dysfunction, Urinary frequency, Urinary incontinence, Urgency, Hematuria, Dysuria, Nocturia, Penile Discharge, Testicular Pain, Testicular Swelling Musculoskeletal: DENIES: Joint pain, Muscle aches, Stiffness, Joint Swelling, Back pain, Neck pain Integumentary: DENIES: Abnormal pigmentation, Nail changes, Pruritus, Rash Hematologic/lymphatic: DENIES: Bruising, Lymphadenopathy Immunologic/allergic: DENIES: Eczema, Urticaria Neurologic: DENIES: Abnormal gait, Headache, Localized weakness, Paresthesias, Seizures, Speech Problems, Tremor, Poor Balance Except as stated in HPI: all other systems reviewed are Neg Past Family Social History Past Medical History Adjusted heart failure, systolic Coronary artery disease Hypertension Past Surgical History Orthopedic surgery Cholecystectomy CABG 4 Reported Medications Reviewed in the EMR, recent steroids and doxycycline as an outpatient Allergies: Coded Allergies: penicillin G (Unverified Allergy, Severe, Hives, 04/04/17) Active Ordered Medications Reviewed in the EMR Family History Father from intracranial hemorrhage at 75, also had coronary artery disease Mother in her 40s from a stroke Social History No tobacco or alcohol dependency, lives alone Physical Exam Vital Signs Vital Signs Date Time Temp Pulse Resp B/P (MAP) Pulse Ox O2 Delivery O2 Flow Rate FiO2 04/05/17 08:43 97.5 60 16 142/70 (94) 95 04/05/17 04:00 98.0 57 16 123/60 (81) 95 04/05/17 00:00 97.8 58 20 85/50 (62) 94 04/04/17 21:00 65 04/04/17 20:00 96.6 63 20 108/62 (77) 97 04/04/17 20:00 97 21 04/04/17 16:50 97.2 69 16 145/87 (106) 98 04/04/17 16:42 98 21 04/04/17 16:33 04/04/17 16:02 68 20 157/81 (106) 97 Room Air 04/04/17 15:17 70 20 137/76 (96) 97 Room Air 04/04/17 14:06 72 20 135/77 (96) 97 Room Air 04/04/17 13:15 75 20 156/90 (112) 99 Room Air 04/04/17 13:15 75 20 99 Room Air 04/04/17 13:00 97.8 74 16 124/66 (85) 98 Physical Exam GENERAL: This is a well-nourished, well-developed patient, in no apparent distress. SKIN: No rashes, ecchymoses or lesions. Cool and dry. HEAD: Atraumatic. Normocephalic. No temporal or scalp tenderness. EYES: Pupils equal round and reactive. Extraocular motions intact. No scleral icterus. No injection or drainage. ENT: Nose without bleeding, purulent drainage or septal hematoma. Throat without erythema, tonsillar hypertrophy or exudate. Uvula midline. Airway patent. NECK: Trachea midline. No JVD or lymphadenopathy. Supple, nontender, no meningeal signs. CARDIOVASCULAR: Regular rate and rhythm without murmurs, gallops, or rubs. RESPIRATORY:decreased Breath sounds but equal bilaterally. No wheezes, rales, or rhonchi. GASTROINTESTINAL: Abdomen soft, non-tender, nondistended. No hepato-splenomegaly , or palpable masses. No guarding. MUSCULOSKELETAL: Extremities without clubbing, cyanosis, or edema. No joint tenderness, effusion, or edema noted. No calf tenderness. Negative Homans sign bilaterally. NEUROLOGICAL: Awake and alert. Cranial nerves II through XII intact. Motor and sensory grossly within normal limits. Five out of 5 muscle strength in all muscle groups. Normal speech. Laboratory Laboratory Tests Test 04/04/17 13:45 04/04/17 16:52 04/04/17 19:20 04/05/17 06:25 White Blood Count 8.3 7.2 Red Blood Count 3.74 3.70 Hemoglobin 11.4 11.5 Hematocrit 35.2 35.1 Mean Corpuscular Volume 94.2 94.9 Mean Corpuscular Hemoglobin 30.5 31.2 Mean Corpuscular Hemoglobin Concent 32.3 32.9 Red Cell Distribution Width 13.1 13.1 Platelet Count 200 204 Mean Platelet Volume 7.7 7.9 Neutrophils (%) (Auto) 61.4 57.7 Lymphocytes (%) (Auto) 25.5 29.7 Monocytes (%) (Auto) 12.1 11.7 Eosinophils (%) (Auto) 0.8 0.7 Basophils (%) (Auto) 0.2 0.2 Neutrophils # (Auto) 5.1 4.2 Lymphocytes # (Auto) 2.1 2.1 Monocytes # (Auto) 1.0 0.8 Eosinophils # (Auto) 0.1 0.1 Basophils # (Auto) 0.0 0.0 CBC Comment DIFF FINAL DIFF FINAL Differential Comment Prothrombin Time 10.4 Prothromb Time International Ratio 1.0 Activated Partial Thromboplast Time 23.7 Blood Urea Nitrogen 24 29 Creatinine 1.50 1.60 Random Glucose 98 86 Total Protein 5.7 Albumin 2.6 Calcium Level 8.1 8.3 Alkaline Phosphatase 51 Aspartate Amino Transf (AST/SGOT) 22 Alanine Aminotransferase (ALT/SGPT) 24 Total Bilirubin 0.6 Sodium Level 131 132 Potassium Level 4.1 3.9 Chloride Level 97 96 Carbon Dioxide Level 24.8 26.3 Anion Gap 9 10 Estimat Glomerular Filtration Rate 45 41 Troponin I 0.07 0.08 0.07 Lipase 441 Date/Time Source Procedure Growth Status 04/04/17 13:45 Nasal Washing Influenza Types A,B Antigen (DEVYN) - Final NEGATIVE FOR FLU A AND B ANTIGEN.... Complete Result Diagram: 04/05/17 0625 04/05/17 [address] Angiography 04/04/17 1333 Signed Impressions: Service Date/Time: Tuesday, April 04, 2017 14:35 - CONCLUSION: 1. No pulmonary embolus. 2. Interstitial disease at the periphery of the lungs. In the acute setting, this could represent some edema. Interstitial disease could also be chronic. Nathanael Ryan MD Septic Shock Reassessment Septic shock perfusion: reassessment completed Caprini VTE Risk Assessment Caprini VTE Risk Assessment: Mod/High Risk (score >= 2) Caprini Risk Assessment Model Point Value = 1 Point Value = 2 Point Value = 3 Point Value = 5 Age 41-60 Minor surgery BMI > 25 kg/m2 Swollen legs Varicose veins or History of unexplained or recurrent spontaneous Oral contraceptives or hormone replacement Sepsis (< 1 month) Serious lung disease, including pneumonia (< 1 month) Abnormal pulmonary function Acute myocardial infarction Congestive heart failure (< 1 month) History of inflammatory bowel disease Medical patient at bed rest Age 61-74 Arthroscopic surgery Major open surgery (> 45 min) Laparoscopic surgery (> 45 min) Malignancy Confined to bed (> 72 hours) Immobilizing plaster cast Central venous access Age >= 75 History of VTE Family history of VTE Factor V Leiden Prothrombin [id number] Lupus anticoagulant Anticardiolipin antibodies Elevated serum homocysteine Heparin-induced thrombocytopenia Other congenital or acquired thrombophilia Stroke (< 1 month) Elective arthroplasty Hip, pelvis, or leg fracture Acute spinal cord injury (< 1 month) Prophylaxis Regimen Total Risk Factor Score Risk Level Prophylaxis Regimen 0-1 Low Early ambulation 2 Moderate Order ONE of the following: *Sequential Compression Device (SCD) *Heparin 5000 units SQ BID 3-4 Higher Order ONE of the following medications: *Heparin 5000 units SQ TID *Enoxaparin/Lovenox 40 mg SQ daily (WT < 150 kg, CrCl > 30 mL/min) *Enoxaparin/Lovenox 30 mg SQ daily (WT < 150 kg, CrCl > 10-29 mL/min) *Enoxaparin/Lovenox 30 mg SQ BID (WT < 150 kg, CrCl > 30 mL/min) AND/OR *Sequential Compression Device (SCD) 5 or more Highest Order ONE of the following medications: *Heparin 5000 units SQ TID (Preferred with Epidurals) *Enoxaparin/Lovenox 40 mg SQ daily (WT < 150 kg, CrCl > 30 mL/min) *Enoxaparin/Lovenox 30 mg SQ daily (WT < 150 kg, CrCl > 10-29 mL/min) *Enoxaparin/Lovenox 30 mg SQ BID (WT < 150 kg, CrCl > 30 mL/min) AND *Sequential Compression Device (SCD) Assessment and Plan Problem List: (1) Bronchitis ICD Code: J40 - Bronchitis, not specified as acute or chronic Plan: Continue steroids, bronchodilators patient education Previously prescribed doxycycline which we will continue (2) Pulmonary edema ICD Code: J81.1 - Chronic pulmonary edema Status: Acute Plan: Status post aggressive diuresis with IV Lasix, 3.6 L diuresis DC Lasix and continue following electrolytes (3) Elevated troponin ICD Code: R74.8 - Abnormal levels of other serum enzymes Plan: Patient with known coronary disease and no further cardiac workup. This is unlikely to be true non-ST elevation CA and may be related to his congestive heart failure and bronchitis. Continue with clinical surveillance and resume home medications for known coronary artery disease (4) Hyponatremia ICD Code: E87.1 - Hypo-osmolality and hyponatremia Plan: secondary to volume overload Improving Assessment and Plan Likely CHF with acute exacerbation of known systolic heart failure Also with acute bronchitis Hopefully discharge in a.m. Code Status DO NOT RESUSCITATE Discussed Condition With Patient, daughter, nursing team Problem Qualifiers (1) Pulmonary edema: Qualified Codes: J81.0 - Acute pulmonary edema Merlyn Jackson MD Apr 05, 2017 12:42
[2017-04-05] MEDS: DOXYCYCLINE HYCLATE 100 MG TAB PO SCH ×2 (13:24→21:27)
[2017-04-05] MEDS: predniSONE 10 MG TAB PO SCH ×2 (13:24→21:26)
[2017-04-05] MEDS: RESP: ALBUTEROL 2.5 MG/IPRATROPIUM 0.5 MG NEB (SCH) NEB ×2 (14:53→20:07)
[2017-04-06] VITALS: BP 137/55; PULSE 71; RESP 16; TEMP 96.5; O2SAT 96
[2017-04-06 04:00] VITALS: BP 131/69; PULSE 63; RESP 14; TEMP 96.2; O2SAT 96
[2017-04-06 05:28] LABS: BICARBONATE 25.1 MEQ/L (21.0-32.0); CALCIUM 8.2 MG/DL (8.5-10.1)
[2017-04-06] MEDS: HEPARIN SODIUM - SQ 10,000 UNITS/ML VIAL SQ SCH (05:29)
[2017-04-06 05:32] LABS: CREATININE 1.5 MG/DL (0.60-1.30)
[2017-04-06 08:00] VITALS: BP 158/88; PULSE 70; PULSE 76; RESP 20; TEMP 96.9; O2SAT 98
[2017-04-06] MEDS: RESP: ALBUTEROL 2.5 MG/IPRATROPIUM 0.5 MG NEB (SCH) NEB ×2 (08:00→14:00)
[2017-04-06 08:01] VITALS: O2SAT 96
[2017-04-06] MEDS: CARVEDILOL 12.5 MG TAB PO SCH (08:47)
[2017-04-06] MEDS: LISINOPRIL 20 MG TAB PO SCH (08:47)
[2017-04-06] MEDS: RANOLAZINE 500 MG EXTENDED RELEASE TAB PO SCH (08:47)
[2017-04-06] MEDS: ATORVASTATIN 40 MG TAB PO SCH (08:47)
[2017-04-06] MEDS: PYRIDOXINE HCL 50 MG TAB PO SCH (08:48)
[2017-04-06] MEDS: DOCUSATE SODIUM 50 MG/SENNA 8.6 MG TAB PO SCH (08:49)
[2017-04-06] MEDS: predniSONE 10 MG TAB PO SCH (08:50)
[2017-04-06] MEDS: ASPIRIN EC 81 MG TABEC PO SCH (08:50)
[2017-04-06] MEDS: TICAGRELOR 60 MG TAB PO SCH (08:54)
[2017-04-06] MEDS: BRIMONIDINE TARTRATE 0.15% OPHT SOLN 5 ML BTL EACH EYE SCH (08:54)
[2017-04-06] MEDS: DOXYCYCLINE HYCLATE 100 MG TAB PO SCH (09:00)
[2017-04-06] MEDS ORDERED: ISOS60TA PO (09:32)
[2017-04-06] MEDS ORDERED: ISOS120T PO (09:32)
[2017-04-06 12:00] VITALS: BP 107/57; PULSE 71; RESP 18; TEMP 97.3; O2SAT 98
[2017-04-06] MEDS ORDERED: DOXY100T PO (12:18)
[2017-04-06] MEDS ORDERED: GUAI100S5 PO (12:18)
[2017-04-06] MEDS ORDERED: NITR0.4S SL (12:18)
--- NOTE | 2017-04-06 12:20 | HHI.DCPOC ---
Discharge Care Plan Diagnosis: (1) Pulmonary edema (2) Hyponatremia (3) Bronchitis Goals to Promote Your Health * To prevent worsening of your condition and complications * To maintain your health at the optimal level Directions to Meet Your Goals Take your medications as prescribed Follow your dietary instruction Follow activity as directed Keep your appointments as scheduled Take your immunizations and boosters as scheduled If your symptoms worsen call your PCP, if no PCP go to Urgent Care Center or Emergency Room Smoking is Dangerous to Your Health. Avoid second hand smoke Call the 24-hour hour crisis hotline for domestic abuse at Merlyn Jackson MD Apr 06, 2017 12:20
--- NOTE | 2017-04-06 12:23 | HHI.DS ---
jamin odum [id number] Discharge Summary Admission Date Apr 04, 2017 at 15:56 Discharge Date: Apr 06, 2017 Admitting Diagnosis CHF WITH ELEV TROPONIN (CARDIOMYOPATHY) (1) Bronchitis ICD Code: J40 - Bronchitis, not specified as acute or chronic (2) Pulmonary edema ICD Code: J81.1 - Chronic pulmonary edema Status: Acute (3) Elevated troponin ICD Code: R74.8 - Abnormal levels of other serum enzymes (4) Hyponatremia ICD Code: E87.1 - Hypo-osmolality and hyponatremia Procedures none Brief History - From Admission Patient is an 81-year-old gentleman with known history coronary artery disease. Patient had 2 weeks of increased congestion in the chest, cough and phlegm production. He went to outpatient urgent care center and received doxycycline, steroids as well as a hand-held nebulizer. Patient still had symptoms into the emergency room with increased work of breathing. He was given treatments for congestive heart failure including IV Lasix. He has since diuresed 3.6 L. He has known systolic heart failure and has been in cardiac follow-up with his doctors in both [facility] and in [facility]. They have told him if his heart ejection fracture reaches less than 30% he may be candidate for defibrillator. So far however they have recommended continued medical management which she has been adherent to. He notes some increased edema in the lower extremities and increased work of breathing which has since improved since the IV diuresis with Lasix. He denies any fevers or chills but says he's had some night sweats. Overall he feels improved On my review of x-ray patient does have some pulmonary congestion CBC/BMP: 04/05/17 0625 04/06/17 0430 Significant Findings Laboratory Tests Test 04/04/17 13:45 04/04/17 16:52 04/04/17 19:20 04/05/17 06:25 Red Blood Count 3.74 MIL/MM3 (4.50-5.90) 3.70 MIL/MM3 (4.50-5.90) Hemoglobin 11.4 GM/DL (13.0-17.0) 11.5 GM/DL (13.0-17.0) Hematocrit 35.2 % (39.0-51.0) 35.1 % (39.0-51.0) Monocytes (%) (Auto) 12.1 % (0.0-8.0) 11.7 % (0.0-8.0) Monocytes # (Auto) 1.0 TH/MM3 (0-0.9) Activated Partial Thromboplast Time 23.7 SEC (24.3-30.1) Blood Urea Nitrogen 24 MG/DL (7-18) 29 MG/DL (7-18) Creatinine 1.50 MG/DL (0.60-1.30) 1.60 MG/DL (0.60-1.30) Total Protein 5.7 GM/DL (6.4-8.2) Albumin 2.6 GM/DL (3.4-5.0) Calcium Level 8.1 MG/DL (8.5-10.1) 8.3 MG/DL (8.5-10.1) Sodium Level 131 MEQ/L (136-145) 132 MEQ/L (136-145) Chloride Level 97 MEQ/L (98-107) 96 MEQ/L (98-107) Estimat Glomerular Filtration Rate 45 ML/MIN (>89) 41 ML/MIN (>89) Troponin I 0.07 NG/ML (0.02-0.05) 0.08 NG/ML (0.02-0.05) 0.07 NG/ML (0.02-0.05) Lipase 441 U/L (73-393) Test 04/06/17 04:30 Blood Urea Nitrogen 29 MG/DL (7-18) Creatinine 1.50 MG/DL (0.60-1.30) Random Glucose 115 MG/DL (74-106) Calcium Level 8.2 MG/DL (8.5-10.1) Sodium Level 127 MEQ/L (136-145) Chloride Level 92 MEQ/L (98-107) Estimat Glomerular Filtration Rate 45 ML/MIN (>89) Imaging Last Impressions CT Angiography 04/04/17 0990 Signed Impressions: Service Date/Time: Tuesday, April 04, 2017 14:35 - CONCLUSION: 1. No pulmonary embolus. 2. Interstitial disease at the periphery of the lungs. In the acute setting, this could represent some edema. Interstitial disease could also be chronic. Nathanael Ryan MD PE at Discharge GENERAL: This is a well-nourished, well-developed patient, some cough CARDIOVASCULAR: Regular rate and rhythm without murmurs, gallops, or rubs. RESPIRATORY: Clear to auscultation. Breath sounds equal bilaterally. No wheezes , rales, or rhonchi. GASTROINTESTINAL: Abdomen soft, non-tender, nondistended. Normal active bowel sounds MUSCULOSKELETAL: Extremities without clubbing, cyanosis, or edema. NEURO: Alert & Oriented x4 to person, place, time, situation. Moves all ext x4 Pt update on day of discharge Patient doing well today. Some congestion is improved Sodium is a bit lower however patient has begun again drinking quite a bit of fluid. Over 5 L of urine output obtained with diuresis. Hospital Course Patient continued treatment for volume overload and for bronchitis. He did well with a short course of steroids and bronchodilators. He had some vague chest pain which resolved with his nitroglycerin and for which he did not or workup even that he has primary cardiology follow-up and previous diagnosis of angina. Patient was recommended to follow his fluid intake as well as daily weights for volume management and continued to improve. Pt Condition on Discharge: Good Discharge Disposition: Discharge Home Discharge Time: <= 30 minutes Discharge Instructions DIET: Follow Instructions for: Heart Healthy Diet Fluid Restrictions: 1.8 liters/day Activities you can perform: Regular-No Restrictions Other Activity Instructions: weight daily Follow up Referrals: Cardiology - 04/13/17 with jamin New Medications: Guaifenesin-Codeine Liq (Guaifenesin-Codeine Liq) 100-10 Mg/5 Ml Soln 10 ML PO Q6H PRN for COUGH, #1 BOTTLE 0 Refills Doxycycline Hyclate (Doxycycline Hyclate) 100 Mg Tab 100 MG PO Q12HR for Infection, #10 TAB Changed Medications: Nitroglycerin SL (Nitrostat SL) 0.4 Mg Subl 0.4 MG SL DIRECTED PRN for CHEST PAIN, #100 TAB.SL 0 Refills (Changed from: 1 tablet under the tongue as needed for chest pain. Repeat every 5 minutes for a total of 3 DOSES or call 911 if NO relief.) 1 tab under the tongue for chest pain. try 5 minutes for a total of 3 DOSES or call 911 Continued Medications: Aspirin DR (Aspirin EC) 81 Mg Tabdr 81 MG PO DAILY, TAB 0 Refills Brimonidine Opth Drops (Brimonidine Opth Drops) 0.15% Soln 1 DROP EACH EYE BID for Intraocular pressure, #1 BOTTLE 0 Refills Carvedilol (Carvedilol) 12.5 Mg Tab 25 MG PO BID, #60 TAB 0 Refills Clonidine (Clonidine) 0.1 Mg Tab 0.1 MG PO DIRECTED for Blood Pressure Management, #60 TAB 0 Refills Furosemide (Lasix) 20 Mg Tab 20 MG PO DIRECTED, #30 TAB 0 Refills Isosorbide Mononitrate ER (Isosorbide Mononitrate ER) 60 Mg Tab 60 MG PO BID for Prevent Chest Pain, #30 TAB 0 Refills Lisinopril (Lisinopril) 20 Mg Tab 20 MG PO DAILY, #30 TAB 0 Refills Prednisone (Prednisone) 1 Mg Tab 4 MG PO DAILY, TAB 0 Refills Pyridoxine (Vitamin B-6) 100 Mg Tab 100 MG PO DAILY for Nutritional Supplement, #30 TAB 0 Refills Rosuvastatin (Rosuvastatin) 40 Mg Tab 40 MG PO DAILY for Cholesterol Management, #30 TAB 0 Refills Ticagrelor (Brilinta) 60 Mg Tab 60 MG PO BID for Blood Clot Prevention, TAB 0 Refills Vitamin A Acetate (Vitamin A) 10,000 Unit Tab.subl 1 TAB PO DAILY Zinc Gluconate (Zinc) 50 Mg Tab 1 TAB PO DAILY [renexa] () 1000 MG PO BID Merlyn Jackson MD Apr 06, 2017 12:23
== END 2017-04-06 14:45 | disposition home or self-care (01) ==
LOC: PHED 12:47 → PHEDA 15:56 → PH3B 16:30
PROVIDERS: ADMIT Hospitalist; ATTEND Hospitalist
DX: I50.22 Chronic systolic (congestive) heart failure (principal); J20.9 Acute bronchitis, unspecified; I13.0 Hypertensive heart and chronic kidney disease with heart failure and stage 1 through stage 4 chronic kidney disease, or unspecified chronic kidney disease; I42.9 Cardiomyopathy, unspecified; N18.9 Chronic kidney disease, unspecified; I25.10 Atherosclerotic heart disease of native coronary artery without angina pectoris; R94.31 Abnormal electrocardiogram [ECG] [EKG]; K21.9 Gastro-esophageal reflux disease without esophagitis; F43.9 Reaction to severe stress, unspecified; E87.1 Hypo-osmolality and hyponatremia; I25.2 Old myocardial infarction; Z95.1 Presence of aortocoronary bypass graft; Z79.01 Long term (current) use of anticoagulants; Z66 Do not resuscitate; Z87.442 Personal history of urinary calculi
CPT/HCPCS: 71275; 80048; 80053; 83690; 84484; 85025; 85610; 85730; 87804; 93005; 94640; 94664; 96372; 96374; 96376; 97161; 99285; G0378; G8987; G8988; J1644; J1940; J7512; Q9967

== ENCOUNTER → 2017-04-28 | Outpatient (CLI) | payer MEDICARE ==
[~2017-04-28] MED LIST changes: -ASCO500C PO; -ASPI-147 PO; +ASPI81TA23 PO; -BIOT7500 PO; -CHOL1CHW5 CHEW; +CLON0.1T PO; +DOXY100T PO; +GUAI100S5 PO; -ISOS120T PO; +ISOS60TA PO; +VITA-176 PO; -VITA500L BUCCAL; -[UNRECOGNIZED DRUG - CODE] PO; -[UNRECOGNIZED DRUG - CODE] PO; -[UNRECOGNIZED DRUG - OTHER] PO
[2017-04-28 13:30] LABS: CHOLESTEROL/ HDL RATIO 2.07 RATIO; HDL CHOLESTEROL 65.5 MG/DL (40.0-60.0)
== END ==
LOC: PLAB 09:29
DX: E78.5 Hyperlipidemia, unspecified (principal)
CPT/HCPCS: 36415; 80061

== ENCOUNTER 2017-06-04 14:21 | Emergency (ER) | payer MEDICARE ==
[~2017-06-04] VITALS: Ht 167.6 cm; Wt 74.0 kg
[2017-06-04 14:28] VITALS: BP 108/60; PULSE 66; RESP 16; TEMP 97.5; O2SAT 97
--- NOTE | 2017-06-04 15:16 | PD ---
HPI Chief Complaint: Fall Time Seen by Provider: 14:46 Travel History International Travel<30 days: No Contact w/Intl Traveler<30days: No Traveled to known affect area: No History of Present Illness HPI This is an 82-year-old male here for evaluation of multiple skin tears to his upper extremities after he had a mechanical fall today. He reports he lost his footing on uneven pavement falling backwards landing on his buttocks then elbows. He denies head injury or loss of consciousness. Patient is anticoagulated on Brilinta. He denies headache, visual changes, neck pain, chest pain, shortness breath, abdominal pain, nausea or vomiting. He reports pain to his right buttocks. Denies pain in either elbow. Symptom severity is mild. PFSH Past Medical History Hx Anticoagulant Therapy: Yes Arthritis: Yes Autoimmune Disease: No Anxiety: Yes Heart Rhythm Problems: Yes Cancer: No Cardiac Catheterization: Yes Cardiovascular Problems: Yes High Cholesterol: Yes Chest Pain: Yes Congestive Heart Failure: No Coronary Artery Disease: Yes Diabetes: No Diminished Hearing: No Endocrine: No GERD: Yes Genitourinary: Yes Hiatal Hernia: No Heparin Induced Thrombocytopen: No Hypertension: Yes Immune Disorder: No Kidney Stones: Yes (years ago) Musculoskeletal: Yes Neurologic: No Psychiatric: No Reproductive: No Respiratory: No Immunizations Current: Yes Myocardial Infarction: Yes Renal Failure: No Seizures: No Sickle Cell Disease: No Thyroid Disease: No Ulcer: No Tetanus Vaccination: Unknown Influenza Vaccination: Yes Past Surgical History Abdominal Surgery: Yes (gallbadder removed) AICD: No Arteriovenous Shunt: No Body Medical Devices: pin in right elbow Cardiac Surgery: Yes (4 bypass about 10 years ago) Cholecystectomy: Yes Coronary Artery Bypass Graft: Yes Ear Surgery: No Endocrine Surgery: No Eye Surgery: Yes (catarat) Genitourinary Surgery: No Gynecologic Surgery: No Insulin Pump: No Joint Replacement: Yes (Lt. knee) Oral Surgery: No Pacemaker: No Thoracic Surgery: No Other Surgery: Yes Social History Alcohol Use: No Tobacco Use: No Substance Use: No Allergies-Medications (Allergen,Severity, Reaction): Coded Allergies: penicillin G (Unverified Allergy, Severe, Hives, 06/04/17) Reported Meds & Prescriptions Reported Meds & Active Scripts Active Nitrostat SL (Nitroglycerin) 0.4 Mg Subl 0.4 Mg SL DIRECTED PRN 1 tab under the tongue for chest pain. try 5 minutes for a total of 3 DOSES or call 911 Reported Isosorbide Mononitrate ER (Isosorbide Mononitrate) 60 Mg Tab 60 Mg PO BID Vitamin A (Vitamin A Acetate) 10,000 Unit Tab.subl 1 Tab PO DAILY Clonidine (Clonidine HCl) 0.1 Mg Tab 0.1 Mg PO DIRECTED Aspirin EC (Aspirin) 81 Mg Tabdr 81 Mg PO DAILY Vitamin B-6 (Pyridoxine HCl) 100 Mg Tab 100 Mg PO DAILY Lasix (Furosemide) 20 Mg Tab 20 Mg PO DIRECTED Carvedilol 12.5 Mg Tab 25 Mg PO BID Zinc (Zinc Gluconate) 50 Mg Tab 1 Tab PO DAILY Brimonidine Opth Drops (Brimonidine Tartrate) 0.15% Soln 1 Drop EACH EYE BID Prednisone 1 Mg Tab 4 Mg PO DAILY Lisinopril 20 Mg Tab 20 Mg PO DAILY Rosuvastatin (Rosuvastatin Calcium) 40 Mg Tab 40 Mg PO DAILY Brilinta (Ticagrelor) 60 Mg Tab 60 Mg PO BID [renexa] 1,000 Mg PO BID Review of Systems Except as stated in HPI: all other systems reviewed are Neg General / Constitutional: No: Fever Eyes: No: Visual changes HENT: No: Headaches Cardiovascular: No: Chest Pain or Discomfort Respiratory: No: Shortness of Breath Gastrointestinal: No: Abdominal Pain Genitourinary: No: Dysuria Physical Exam Narrative GENERAL: Alert and well-appearing 82-year-old male SKIN: Warm and dry. Vital skin tears to the left and right elbows. HEAD: Atraumatic. Normocephalic. EYES: Pupils equal and round. EOMs intact. No injection or drainage. ENT: No nasal bleeding or discharge. Mucous membranes pink and moist. NECK: Trachea midline. No JVD. No cervical midline tenderness CARDIOVASCULAR: Regular rate and rhythm. No chest wall tenderness RESPIRATORY: No accessory muscle use. Clear to auscultation. Breath sounds equal bilaterally. Equal and even chest rise GASTROINTESTINAL: Abdomen soft, non-tender, nondistended. MUSCULOSKELETAL: Extremities without clubbing, cyanosis, or edema. No obvious deformities. Pelvis is stable. Positive TTP over the right buttocks. Large skin tear to the left elbow medial aspects. Skin tear to right elbow. No bony point tenderness. Patient is able to flex and extend the elbows without difficulty. Normal sensation distally. 2+ radial pulse. Brisk cap refill. NEUROLOGICAL: Awake and alert. No obvious cranial nerve deficits. Motor grossly within normal limits. Five out of 5 muscle strength in the arms and legs. Normal speech. PSYCHIATRIC: Appropriate mood and affect; insight and judgment normal. Data Data Last Documented VS Vital Signs Date Time Temp Pulse Resp B/P (MAP) Pulse Ox O2 Delivery O2 Flow Rate FiO2 06/04/17 14:28 97.5 66 16 108/60 (76) 97 Orders Orders Pelvis, Ap Only (Routine) (06/04/17 ) MDM Medical Decision Making Medical Screen Exam Complete: Yes Emergency Medical Condition: Yes Differential Diagnosis Skin tear, pelvic fracture, contusion Narrative Course 82-year-old male here for evaluation of skin tears to bilateral elbows and right buttocks pain. He had mechanical trip and fall from a standing position falling onto his buttocks then to his arms. He denies head injury or loss of consciousness. He is anticoagulated on Eliquis. He has a normal neurologic exam. Patient refused CT of the brain stating he knows he did not injure his head and does not want the scan. risk of missed injury including intracranial hemorrhage which could lead to permanent disability and was discussed. Patient verbalizes understanding and still refuses scan. X-ray of the pelvis was negative for fracture. He was offered pain medication and declined. Wounds were cleansed and sterile dressings applied. Wound care was discussed at length with patient. He reports he is very familiar with treatment of skin tears as he has had many in the past. He agrees to follow-up with his primary doctor. Diagnosis Primary Impression: Skin tear of elbow without complication Qualified Codes: S51.019A - Laceration without foreign body of unspecified elbow, initial encounter Additional Impression: Contusion Qualified Codes: S30.0XXA - Contusion of lower back and pelvis, initial encounter Referrals: Primary Care Physician Additional Instructions: Change the dressings daily. Antibiotics as directed. Follow-up with her primary doctor for recheck. Return to emergency department if he developed new or worsening symptoms. Scripts Sulfamethoxazole-Trimethoprim (Bactrim DS) 800-160 Mg Tab 1 TAB PO BID for Infection, #10 TAB 0 Refills Prov: Yulissa Jarrett 06/04/17 Disposition: 01 DISCHARGE HOME Condition: Stable Yulissa Jarrett Jun 04, 2017 15:16
--- NOTE | 2017-06-04 15:49 | RADRPT ---
EXAM DATE/TIME: 06/04/2017 15:01 [facility] COMPARISON: No previous studies available for comparison. INDICATIONS : Right buttock bruise post fall. MEDICAL HISTORY : Arthritis. Cardiovascular disease. Hypertension. Anticoagulant therapy SURGICAL HISTORY : CABG. ENCOUNTER: Initial ACUITY: 1 day PAIN SCORE: 1/10 LOCATION: Right buttock FINDINGS: A single frontal view of the pelvis demonstrates no evidence of fracture. The bony pelvic ring is in tact. Bony mineralization is normal. 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 Extensive gastric calcifications. The soft tissues are intact. CONCLUSION: 1. No acute fracture or dislocation. Vlad Gaming MD on June 04, 2017 at 15:47 Board Certified Radiologist. This report was verified electronically.
[2017-06-04] MEDS ORDERED: BACT800T5 PO ×2 (16:27→16:28)
[2017-06-05] MEDS ORDERED: NITR1SUB3 SL (16:36)
== END 2017-06-04 16:40 | disposition home or self-care (01) ==
LOC: PHEFT 14:21
DX: S51.011A Laceration without foreign body of right elbow, initial encounter (principal); S51.012A Laceration without foreign body of left elbow, initial encounter; S30.0XXA Contusion of lower back and pelvis, initial encounter; E78.00 Pure hypercholesterolemia, unspecified; I10 Essential (primary) hypertension; W19.XXXA Unspecified fall, initial encounter; Z79.01 Long term (current) use of anticoagulants
CPT/HCPCS: 72170; 99283

== ENCOUNTER 2017-06-05 12:13 | Emergency (ER) | payer MEDICARE ==
[2017-06-05] VITALS (9 sets, daily range): BP systolic 128–171; BP diastolic 78–95; PULSE 72–84; RESP 20; TEMP 98.3; O2SAT 98–100
[~2017-06-05 12:13] MED LIST changes: +BACT800T5 PO; -DOXY100T PO; -GUAI100S5 PO
[2017-06-05] MEDS ORDERED: SODIUM CHLORIDE 0.9% FLUSH 10 ML FLUSH IVF PRN (12:30)
[2017-06-05] MEDS ORDERED: NITROGLYCERIN 2% OINT 1 GM PACKET TOP ONE (12:30)
[2017-06-05] MEDS ORDERED: ASPIRIN 81 MG CHEW TAB PO ONE (12:30)
[2017-06-05] MEDS: NITROGLYCERIN 0.4 MG SL 25 TABS/BTL SL SCH ×2 (12:35→12:39)
--- NOTE | 2017-06-05 12:39 | PD ---
HPI Chief Complaint: Chest Pain Time Seen by Provider: 12:25 Travel History International Travel<30 days: No Contact w/Intl Traveler<30days: No History of Present Illness HPI Patient is an 82-year-old male presents emergency department with chest pain in the center of his chest which was relieved by nitroglycerin prior to arrival. Patient states he has history of CABG and his last regular box feeder was in [place] who told him "I cannot do anything more for you because multiple grafts are clotted off". Patient states when the nitroglycerin wore off his pain returned over and over again this morning and so he decided to come in and be seen. He denies any shortness of breath denies any nausea vomiting or dizziness. States has not had a catheterization over 5 years. Has no box feeder here in town. PFSH Past Medical History Hx Anticoagulant Therapy: Yes Arthritis: Yes Autoimmune Disease: No Anxiety: Yes Heart Rhythm Problems: Yes Cancer: No Cardiac Catheterization: Yes Cardiovascular Problems: Yes High Cholesterol: Yes Chest Pain: Yes Congestive Heart Failure: No Coronary Artery Disease: Yes Diabetes: No Diminished Hearing: No Endocrine: No GERD: Yes Genitourinary: Yes Hiatal Hernia: No Heparin Induced Thrombocytopen: No Hypertension: Yes Immune Disorder: No Kidney Stones: Yes (years ago) Musculoskeletal: Yes Neurologic: No Psychiatric: No Reproductive: No Respiratory: No Immunizations Current: Yes Myocardial Infarction: Yes Renal Failure: No Seizures: No Sickle Cell Disease: No Thyroid Disease: No Ulcer: No Past Surgical History Abdominal Surgery: Yes (gallbadder removed) AICD: No Arteriovenous Shunt: No Body Medical Devices: pin in right elbow Cardiac Surgery: Yes (4 bypass about 10 years ago) Cholecystectomy: Yes Coronary Artery Bypass Graft: Yes Ear Surgery: No Endocrine Surgery: No Eye Surgery: Yes (catarat) Genitourinary Surgery: No Gynecologic Surgery: No Insulin Pump: No Joint Replacement: Yes (Lt. knee) Oral Surgery: No Pacemaker: No Thoracic Surgery: No Other Surgery: Yes Social History Alcohol Use: No Tobacco Use: No Substance Use: No Allergies-Medications (Allergen,Severity, Reaction): Coded Allergies: penicillin G (Unverified Allergy, Severe, Hives, 06/05/17) Reported Meds & Prescriptions Reported Meds & Active Scripts Active Nitroglycerin SL (Nitroglycerin) 0.4 Mg Subl 0.4 Mg SL DIRECTED PRN ONE TABLET UNDER THE TONGUE NEEDED FOR CHEST PAIN, MAY REPEAT EVERY FIVE MINUTES FOR A TOTAL OF 3 DOSES OR CALL 911 IF NO RELIEF Bactrim DS (Sulfamethoxazole-Trimethoprim) 800-160 Mg Tab 1 Tab PO BID Nitrostat SL (Nitroglycerin) 0.4 Mg Subl 0.4 Mg SL DIRECTED PRN 1 tab under the tongue for chest pain. try 5 minutes for a total of 3 DOSES or call 911 Reported Isosorbide Mononitrate ER (Isosorbide Mononitrate) 60 Mg Tab 60 Mg PO BID Vitamin A (Vitamin A Acetate) 10,000 Unit Tab.subl 1 Tab PO DAILY Clonidine (Clonidine HCl) 0.1 Mg Tab 0.1 Mg PO DIRECTED Aspirin EC (Aspirin) 81 Mg Tabdr 81 Mg PO DAILY Vitamin B-6 (Pyridoxine HCl) 100 Mg Tab 100 Mg PO DAILY Lasix (Furosemide) 20 Mg Tab 20 Mg PO DIRECTED Carvedilol 12.5 Mg Tab 25 Mg PO BID Zinc (Zinc Gluconate) 50 Mg Tab 1 Tab PO DAILY Brimonidine Opth Drops (Brimonidine Tartrate) 0.15% Soln 1 Drop EACH EYE BID Prednisone 1 Mg Tab 4 Mg PO DAILY Lisinopril 20 Mg Tab 20 Mg PO DAILY Rosuvastatin (Rosuvastatin Calcium) 40 Mg Tab 40 Mg PO DAILY Brilinta (Ticagrelor) 60 Mg Tab 60 Mg PO BID [renexa] 1,000 Mg PO BID Review of Systems Except as stated in HPI: all other systems reviewed are Neg Physical Exam Narrative GENERAL: Well-developed, comfortable appearance in no obvious distress SKIN: Focused skin assessment warm/dry. HEAD: Atraumatic. Normocephalic. EYES: Pupils equal and round. No scleral icterus. No injection or drainage. ENT: No nasal bleeding or discharge. Mucous membranes pink and moist. NECK: Trachea midline. No JVD. CARDIOVASCULAR: Regular rate and rhythm. No murmur appreciated. 2+ bilateral equal pulses in all 4 extremities RESPIRATORY: No accessory muscle use. Clear to auscultation. Breath sounds equal bilaterally. GASTROINTESTINAL: Abdomen soft, non-tender, nondistended. Hepatic and splenic margins not palpable. MUSCULOSKELETAL: No obvious deformities. No clubbing. No cyanosis. No edema. NEUROLOGICAL: Awake and alert. No obvious cranial nerve deficits. Motor grossly within normal limits. Normal speech. PSYCHIATRIC: Appropriate mood and affect; insight and judgment normal. Data Data Last Documented VS Vital Signs Date Time Temp Pulse Resp B/P (MAP) Pulse Ox O2 Delivery O2 Flow Rate FiO2 06/05/17 16:40 78 16 156/86 (109) 100 06/05/17 13:40 Nasal Cannula 2.00 06/05/17 13:25 98.3 Orders Orders Ckmb (Isoenzyme) Profile (06/05/17 12:25) Complete Blood Count With Diff (06/05/17 12:25) Comprehensive Metabolic Panel (06/05/17 12:25) Magnesium (Mg) (06/05/17 12:25) Prothrombin Time / Inr (Pt) (06/05/17 12:25) Act Partial Throm Time (Ptt) (06/05/17 12:25) Troponin I (06/05/17 12:25) Chest, Single Ap (06/05/17 12:25) Ecg Monitoring (06/05/17 12:25) Iv Access Insert/Monitor (06/05/17 12:25) Oximetry (06/05/17 12:25) Oxygen Administration (06/05/17 12:25) Aspirin Chew (Aspirin Chew) (06/05/17 12:30) Nitroglycerin 2% Oint (Nitroglycerin 2% (06/05/17 12:30) Sodium Chloride 0.9% Flush (Ns Flush) (06/05/17 12:30) Nitroglycerin Sl (Nitrostat Sl) (06/05/17 12:30) CKMB (06/05/17 12:25) CKMB% (06/05/17 12:25) Troponin I (06/05/17 14:54) Electrocardiogram (06/05/17 12:17) Labs Laboratory Tests Test 06/05/17 12:25 06/05/17 15:20 White Blood Count 8.6 TH/MM3 Red Blood Count 3.78 MIL/MM3 Hemoglobin 11.9 GM/DL Hematocrit 36.5 % Mean Corpuscular Volume 96.6 FL Mean Corpuscular Hemoglobin 31.3 PG Mean Corpuscular Hemoglobin Concent 32.5 % Red Cell Distribution Width 13.4 % Platelet Count 175 TH/MM3 Mean Platelet Volume 8.2 FL Neutrophils (%) (Auto) 64.0 % Lymphocytes (%) (Auto) 25.0 % Monocytes (%) (Auto) 9.5 % Eosinophils (%) (Auto) 0.7 % Basophils (%) (Auto) 0.8 % Neutrophils # (Auto) 5.4 TH/MM3 Lymphocytes # (Auto) 2.2 TH/MM3 Monocytes # (Auto) 0.8 TH/MM3 Eosinophils # (Auto) 0.1 TH/MM3 Basophils # (Auto) 0.1 TH/MM3 CBC Comment DIFF FINAL Differential Comment Prothrombin Time 10.1 SEC Prothromb Time International Ratio 1.0 RATIO Activated Partial Thromboplast Time 21.2 SEC Blood Urea Nitrogen 21 MG/DL Creatinine 1.70 MG/DL Random Glucose 143 MG/DL Total Protein 6.1 GM/DL Albumin 3.2 GM/DL Calcium Level 8.1 MG/DL Magnesium Level 2.1 MG/DL Alkaline Phosphatase 60 U/L Aspartate Amino Transf (AST/SGOT) 24 U/L Alanine Aminotransferase (ALT/SGPT) 25 U/L Total Bilirubin 0.6 MG/DL Sodium Level 132 MEQ/L Potassium Level 4.2 MEQ/L Chloride Level 101 MEQ/L Carbon Dioxide Level 21.8 MEQ/L Anion Gap 9 MEQ/L Estimat Glomerular Filtration Rate 39 ML/MIN Total Creatine Kinase 125 U/L Creatine Kinase MB 1.9 NG/ML Troponin I 0.10 NG/ML 0.42 NG/ML MDM Medical Decision Making Medical Screen Exam Complete: Yes Emergency Medical Condition: Yes Interpretation(s) EKG interpreted by me shows significant abnormality. This is a sinus rhythm first degree heart block, right bundle branch block, T-wave inversions in 3 aVF V3 V4 and V5. No ST segment elevation, no evidence of posterior acute MT. Comparison to his most recent EKG on file of 04/04/2017 @ 7:14p show these are new T-wave inversions in 3 aVF V1 V3 and V4. Comparison to another EKG on file of 04/04/2017 at 4:52 PM shows no change from this EKG. Differential Diagnosis ACS, MT, dissection unlikely, pneumonia, coronary artery disease. Narrative Course Patient roomed in the emergency department, reviewed cardiology consult from Dr. Manuel in 06/21/2016 which confirms a patient history that he has been seen by multiple cardiologists and had catheterization showing multiple lesions unblocked grafts all of which are not amenable to intervention. He recommended medical management at that time as the patient was admitted for chest pain then as well. After one nitroglycerin and Nitropaste the patient's blood pressure is now normalized and his chest pain is dissipated completely. His troponin is usually elevated about 0.07-0.08 and today's 0.10. I had an extensive conversation with the patient about what is optimal medical management for him going forward. I discussed with him that we could consider putting him in the hospital for another cardiology consult but the only thing that would tell us particularly what was going on would be doing another cardiac catheterization. He stated that this was essentially pointless because he was told by multiple box feeder in the past that no catheterization would ever be able to benefit him as he is "a ticking time bomb" according to him. Still I recommended the patient be at least observed in the emergency department for repeat troponin as well as to make sure he remains chest pain- free. At that time we will discuss again admission versus discharge home. After period of observation with nitroglycerin removed the patient had no return of his chest pain. A repeat troponin was sent and is now elevated to 0.4. I discussed with patient that given his symptoms his history this is enough for me to diagnose him with myocardial infarction. I highly recommended that he stay in the hospital to speak with cardiology again to see if anything can be done. I also discussed with him the possibility of hospice enrollment and at this time he is reluctant for this. He reiterates multiple times is been told by multiple box feeder that he is not a candidate for any reperfusion therapy stents angiogram or bypass. The patient is chest pain-free and expresses his wishes to go home. He states that he only came in to have pain medicine given to him so that he can control his pain. We had a lengthy discussion of his risks of signing out AGAINST MEDICAL ADVICE including sudden , permanent disability, dependence on life support which could be permanent for the rest of his life. He verbalized understanding and accepted the risks. While medically he may be optimized I cannot guarantee him having a favorable medical outcome given his pain and his elevated cardiac enzymes. I discussed also with him the risks of arrhythmia congestive heart failure he verbalized understanding and the risk of and disability from these as well. At this time he is alert and awake and oriented his family is here at the bedside and endorses decisions. He is appropriate to sign out AGAINST MEDICAL ADVICE, a formal AMA form was signed and placed on the chart. He was invited to return at any time should he change his mind. He was urged to follow-up with his regular box feeder and a new prescription of nitroglycerin was written for him because he does not know if his is Diagnosis Primary Impression: NSTEMI (non-ST elevated myocardial infarction) Med/Other Pt SpecificInfo: Prescription(s) given Scripts Nitroglycerin SL (Nitroglycerin SL) 0.4 Mg Subl 0.4 MG SL DIRECTED Y for CHEST PAIN, #100 TAB.SL 0 Refills ONE TABLET UNDER THE TONGUE NEEDED FOR CHEST PAIN, MAY REPEAT EVERY FIVE MINUTES FOR A TOTAL OF 3 DOSES OR CALL 911 IF NO RELIEF Prov: Arsen Ivey MD 06/05/17 Disposition: 07 AGAINST MEDICAL ADVICE Condition: Serious Arsen Ivey MD Jun 05, 2017 12:39
[2017-06-05 12:42] LABS: AUTOMATED NEUTROPHIL # 5.4 TH/MM3 (1.8-7.7); BASOPHIL # 0.1 TH/MM3 (0-0.2); BASOPHIL % 0.8 % (0.0-2.0); EOSINOPHIL # 0.1 TH/MM3 (0-0.4); EOSINOPHIL % 0.7 % (0.0-4.0); HEMATOCRIT 36.5 % (39.0-51.0); HEMOGLOBIN 11.9 GM/DL (13.0-17.0); LYMPHOCYTE # 2.2 TH/MM3 (1.0-4.8); MEAN CELL VOLUME 96.6 FL (80.0-100.0); MEAN CORPUSCULAR HEMOGLOBIN 31.3 PG (27.0-34.0); MEAN CORPUSCULAR HGB CONC 32.5 % (32.0-36.0); MEAN PLATELET VOLUME 8.2 FL (7.0-11.0); MONO % 9.5 % (0.0-8.0); MONOCYTE # 0.8 TH/MM3 (0-0.9); PLATELET COUNT 175 TH/MM3 (150-450); RED BLOOD COUNT 3.78 MIL/MM3 (4.50-5.90); RED CELL DISTRIBUTION WIDTH 13.4 % (11.6-17.2); WHITE BLOOD COUNT 8.6 TH/MM3 (4.0-11.0)
[2017-06-05 12:51] LABS: CHLORIDE 101 MEQ/L (98-107); SODIUM (NA) 132 MEQ/L (136-145)
--- NOTE | 2017-06-05 12:52 | RADRPT ---
EXAM DATE/TIME: 06/05/2017 12:42 [facility] COMPARISON: CHEST SINGLE AP, June 20, 2016, 15:24. INDICATIONS : Chest pain MEDICAL HISTORY : Myocardial infarction. SURGICAL HISTORY : CABG. ENCOUNTER: Initial ACUITY: 1 day PAIN SCORE: 7/10 LOCATION: Bilateral chest FINDINGS: A single view of the chest demonstrates the lungs to be symmetrically aerated without evidence of mas s, infiltrate or effusion. The cardiomediastinal contours are unremarkable. Osseous structures are intact. CONCLUSION: Normal examination. Numerous sternal wires are intact. Donovan Suh MD on June 05, 2017 at 12:51 Board Certified Radiologist. This report was verified electronically.
[2017-06-05 12:54] LABS: CALCIUM 8.1 MG/DL (8.5-10.1)
[2017-06-05 12:55] LABS: ALBUMIN 3.2 GM/DL (3.4-5.0); BICARBONATE 21.8 MEQ/L (21.0-32.0); BLOOD UREA NITROGEN 21 MG/DL (7-18); GLUCOSE,RANDOM 143 MG/DL (74-106); MAGNESIUM 2.1 MG/DL (1.5-2.5)
[2017-06-05 12:56] LABS: PROTHROMBIN TIME - PATIENT 10.1 SEC (9.8-11.6)
[2017-06-05 12:58] LABS: ALT (GPT) 25 U/L (12-78); AST (GOT) 24 U/L (15-37); GLOMERULAR FILTRATION RATE 39 ML/MIN (>89)
[2017-06-05 13:00] LABS: TOTAL BILIRUBIN ADULT 0.6 MG/DL (0.2-1.0); TOTAL PROTEIN 6.1 GM/DL (6.4-8.2)
[2017-06-05 13:01] LABS: ALKALINE PHOSPHATASE 60 U/L (45-117)
[2017-06-05] MEDS ORDERED: NITR1SUB3 SL (16:36)
--- NOTE | 2017-06-06 10:51 | EKG ---
Date Performed: 06/05/2017 Time Performed: 15:11:21 PTAGE: 82 years EKG: Sinus rhythm WITH FIRST DEGREE AV BLOCK INTRAVENTRICULAR CONDUCTION DELAY INFERIOR MYOCARDIAL INFARCTION ABNORMAL ECG PREVIOUS TRACING : 06/05/2017 12.17 DOCTOR: Donovan Velázquez Interpretating Date/Time 06/06/2017 10:50:16
--- NOTE | 2017-06-06 11:16 | EKG ---
Date Performed: 06/05/2017 Time Performed: 12:17:38 PTAGE: 82 years EKG: Sinus rhythm WITH FIRST DEGREE AV BLOCK BORDERLINE RIGHT AXIS DEVIATION INTRAVENTRICULAR CONDUCTION DELAY INFERIO R MYOCARDIAL INFARCTION ABNORMAL ECG INTERPRETATION BASED ON A DEFAULT AGE OF 40 YEARS PREVIOUS TRACING : 04/04/2017 19.14 DOCTOR: Donovan Velázquez Interpretating Date/Time 06/06/2017 11:14:35
== END 2017-06-05 17:00 | disposition left against medical advice (07) ==
LOC: PHED 12:13
DX: I21.4 Non-ST elevation (NSTEMI) myocardial infarction (principal); I25.2 Old myocardial infarction; I25.10 Atherosclerotic heart disease of native coronary artery without angina pectoris; I10 Essential (primary) hypertension; F41.9 Anxiety disorder, unspecified; E78.00 Pure hypercholesterolemia, unspecified; M19.90 Unspecified osteoarthritis, unspecified site; Z95.1 Presence of aortocoronary bypass graft; Z53.20 Procedure and treatment not carried out because of patient's decision for unspecified reasons
CPT/HCPCS: 71045; 80053; 82550; 82552; 83735; 84484; 85025; 85610; 85730; 93005; 99285